=== PATIENT | male | born 1985 | race Caucasian/White ===

== ENCOUNTER 2019-05-07 23:09 | Emergency (ER) | payer SELFPAY ==
--- OUTSIDE RECORDS SUMMARY | 2019-05-07 23:14 | XMS REPORT ---
:1985 [facility] Emiliano Montilla [address] [place] [address] Care Team Providers Name Role Phone Unavailable Unavailable Unavailable Payers Payer Name Policy Type Policy Number Effective Date Expiration Date Problems This patient has no known problems. Allergies, Adverse Reactions, Alerts Allergy Allergy Status Severity Reaction(s) Onset Inactive Treating Comments Name Type Date Date Clinician No Known DA Active U 2016-07 Allergies -13 00:00:0 0 Medications This patient has no known medications. Results Test Description Test Time Test Comments Text Results Atomic Results Result Comments CALCULI URINARY WITH PHOTO 2019-04-07 14:08:00 Test Item Value Reference Range Comments ST COLOR (test code=COLST) [place] () ST SIZE (test code=SIZST) 4x3x3 mm () ST WEIGHT (test code=WGTST) 31.[address] () ST COMPOSITION (test () Percentage (Represents the % code=COMPST) composition) ST CA OXALATE DIHYDRATE (test 15 % () code=CAOXDST) ST CA OXALATE MONOHYDRATE 55 % () (test code=CAOXMST) ST CA PHOSPHATE (test 30 % () code=CAPHST) ST NIDUS (test code=NIDUSST) No Nidus visualized () ST SURFACE CRYSTALS (test Comment: () Calcium oxalate dihydrate code=SURFST) ST COMMENT 2 (test Note: () Please do not submit specimens code=CMTST2) on Q-Tips, in tape, onfilters, or in liquids such as blood, urine or formalin.This may cause unnecessary biohazards, erroneous resultsand/or delay in the processing of the specimen. ST PHOTO (test code=PHOTST) () Photograph will follow under separate cover. ST COMMENT 3 (test () Physician questions regarding code=CMTST3) Calculi [facility] at: [phone]. SURGICAL [id number] 18:04:00 RUN DATE: 04/01/19 tocario *LIVE* PAGE 1 RUN TIME: 1804 Specimen Inquiry RUN USER: INTERFACE PATIENT: MARK SALMERON [facility] U #: [id number] AGE/SX: 34/M ROOM: [facility] RE03/20/19MONICA DR: Denis Mo MD : 85 BED: 1 DIS: STATUS: DIS IN TLOC: ----- ------- SPEC #: [id number] RECD: 03/31/19 STATUS: [place] #: [id number] KATIA: 03/31/[address]: Denis Mo MD ENTERED: 04/01/19 SP TYPE: SURG SPEC OTHR DR: Self Referred Sam Koo MD, Jeromy T MDORDERED: GMLEVEL 4 CODES: [id number] - URETER, NOS COPIES TO: Self Referred Denis Mo MD [address] [place], [place] [id number] Sam Koo MD [address] [facility] [address] [place] [address] Slim Ramirez MD [address] [place], [place] [address] [place] [address] [email or web address] PROCEDURES: GM LEVEL 4 (Incomplete) TISSUES: 1. URETER, NOS - Calculus, left ureter FINAL DIAGNOSIS Calculus, left ureter: For identification (chemical analysis to follow). GROSS AND MICROSCOPIC GROSS DESCRIPTION: Received in the fresh state and labeled "stone" is a urinary tract stone. The stone is designated from the left ureter and measures 0.4 cm in greatest dimensions. The stone is submitted for chemical analysis. CONTINUED ON NEXT PAGE RUN DATE: 04/01/19 [facility] *LIVE* PAGE 2 RUN TIME: 1804 Specimen Inquiry RUN USER: INTERFACE SPEC #: [id number] :[id number] PATIENT: MARK SALMERON #[id number] (Continued)- POST-OP DIAGNOSIS Left ureter stone PRE-OP DIAGNOSIS Left ureter stone Signed SIGNATURE ON FILE Christin Ford MD 04/01/19 1804 END OF REPORT - XR FLUOROSCOPY 0-60 [id number] 15:37:00 FAX: Simon Galvez MD [phone] Tangent: St: ADM Name: MARK SALMERON [facility] : 1985 Age/S: 34/M [address] [place] [address] Unit#: [id number] Loc : [id number] [place] [address] Phys: Simon Ramirez MD Acct: [id number] Dis Date: Status: ADM IN PHONE #: [phone] Exam Date: 03/30/2019 1147 FAX #: [phone] Reason: STONE EXAMS: CPT CODE: [id number] XR FLUOROSCOPY 0-60 MIN 61591 Exam: Fluoroscopy provided for operating physician. Indication: 34-year-old male with stone. Comparison: None. Technique: Fluoroscopy provided for operating physician. Fluoroscopy time: 47 seconds Radiation dose: 21.5 mGycm2 Number of fluoroscopic images: 7 Findings: Fluoroscopy was provided for the operating physician. Please see operative report for details. Impression: Fluoroscopy was provided for the operating physician. Please see operative report for details. SL: [id number] at 1537 Reported and signed by: George Khoury M.D. CC: Simon Ramirez MD Technologist: RT Mario(R) Trnscrd Date/Time/By: 03/30/2019 (1533) : By: Jo AnnAB53 Orig Print D/T : S: 03/30/2019 (2293) PAGE 1 Signed ReportUA RFLX MICR CULT IF [id number] 05:32:00 Test Item Value Reference Range Comments UA COLOR (test code=COLU) DARK YELLOW YEL/STRAW UA APPEARANCE (test code=APPU) CLOUDY CLEAR UA GLUCOSE DIPSTICK (test code=DGLUU) NEGATIVE NEGATIVE UA BILIRUBIN DIPSTICK (test code=BILU) 3+ NEGATIVE UA KETONE DIPSTICK (test code=KETU) NEGATIVE NEGATIVE UA SPECIFIC GRAVITY (test code=SGU) 1.020 1.005-1.030 UA BLOOD DIPSTICK (test code=REANNA) 5+ NEGATIVE UA PH DIPSTICK (test code=DARIO) 6.5 5.0-7.0 UA PROTEIN DIPSTICK (test code=PROU) 4+ NEGATIVE UA UROBILINIOGEN DIPSTICK (test code=URO) 8.0 mg/dL 0.2-1.0 UA NITRITE DIPSTICK (test code=MARQUES) POSITIVE NEGATIVE UA LEUKOCYTE ESTERASE DIPSTICK (test 1+ NEGATIVE code=LEUU) UA WBC (test code=WBCU) 4-9 WBC/HPF 0-3 UA RBC (test code=RBCU) >50 RBC/HPF 0-3 UA WBC NO REFLEX (test code=WBCUCL) 4-9 WBC/HPF 0-3 UA BACTERIA (test code=BACU) TRACE /HPF NONE SEEN UA SQUAMOUS CELLS (test code=SQU) NONE SEEN /HPF NONE SEEN Indication for culture: Flank PainSpecimen Description: CLEAN CATCH- XR ABDOMEN 1V (KUB)2019-03-30 05:27:00 FAX: Ayad River NP Tangent: St: ADM Name: MARK SALMERON [facility] : 1985 Age/S: 34/M [address] [place] [address] Unit#: [id number] Loc: [place] [address] Phys: Ayad River NP Acct: [id number] Dis Date: Status: ADM IN PHONE #: [phone] Exam Date: 03/30/2019 045 FAX #: [phone] Reason: Known kidney stone with stent EXAMS: CPT CODE: [id number] XR ABDOMEN 1V (KUB) 51864 EXAM: CR, XR ABDOMEN AP 1 V: 03/30/2019, 0445 hours Clinical Indication: Known kidney stone with stent. Intractable pain. Urinary tract infection. Comparison: CT scan 03/27/2019. FINDINGS: TheAP supine view of the abdomen shows a non-obstructive bowel gas pattern. There is no abnormal dilatation of bowel loops. There is no pneumatosis or mass effect. Stable left ureteral stent. Stone at the mid and inferior pole of the left kidney are again noted and appear stableas compared to the prior study. Small stone seen in the right kidney on CT scan from 03/27/2019 is not visualized, probably obscured by feces within the right colon. There are no acute osseous abnormalities noted. IMPRESSION: 1. Stable left renal stones. Stable left ureteral stent. SL: CHANDNI at 0569 Reported and signed by: Erik Pierre M.D. CC: Ayad River NP Technologist: LEANNE Mai)Palak Trnscrd Date/Time/By: 03/30/2019 (0558) : By: Jo AnnJS38 Orig Print D/T : S: 03/30/2019 (3646) PAGE 1 Signed ReportUA RFLX MICR CULT IF [id number] 05:22:00 Test Item Value Reference Range Comments UA COLOR (test code=COLU) DARK YELLOW YEL/STRAW UA APPEARANCE (test code=APPU) CLOUDY CLEAR UA GLUCOSE DIPSTICK (test code=DGLUU) NEGATIVE NEGATIVE UA BILIRUBIN DIPSTICK (test code=BILU) 3+ NEGATIVE UA KETONE DIPSTICK (test code=KETU) NEGATIVE NEGATIVE UA SPECIFIC GRAVITY (test code=SGU) 1.020 1.005-1.030 UA BLOOD DIPSTICK (test code=REANNA) 5+ NEGATIVE UA PH DIPSTICK (test code=DARIO) 6.5 5.0-7.0 UA PROTEIN DIPSTICK (test code=PROU) 4+ NEGATIVE UA UROBILINIOGEN DIPSTICK (test code=URO) 8.0 mg/dL 0.2-1.0 UA NITRITE DIPSTICK (test code=MARQUES) POSITIVE NEGATIVE UA LEUKOCYTE ESTERASE DIPSTICK (test code=LEUU) 1+ NEGATIVE UA WBC (test code=WBCU) WBC/HPF 0-3 UA RBC (test code=RBCU) RBC/HPF 0-3 UA WBC NO REFLEX (test code=WBCUCL) WBC/HPF 0-3 Indication for culture: Flank PainSpecimen Description: CLEAN CATCHBASIC METABOLIC [id number] 05:18:00 Test Item Value Reference Range Comments SODIUM (test code=NA) 139 mEq/L 134-147 POTASSIUM (test code=K) 4.2 mEq/L 3.4-5.0 CHLORIDE (test code=CL) 108 mEq/L 100-108 CARBON DIOXIDE (test code=CO2) 24 mEq/L 21-33 ANION GAP (test code=GAP) 11 0-20 GLUCOSE (test code=GLU) 98 mg/dL 70-110 BLOOD UREA NITROGEN (test 23 mg/dL 7-18 code=BUN) GLOMERULAR FILTRATION RATE 96.6 105-110 Units of measure=ml/min/1.73 (test code=GFR) m2 CREATININE (test code=CREAT) 0.9 mg/dL 0.6-1.3 CALCIUM (test code=CA) 9.1 mg/dL 8.0-10.5 BASIC METABOLIC [id number] 05:09:00 Test Item Value Reference Range Comments SODIUM (test code=NA) 139 mEq/L 134-147 POTASSIUM (test code=K) 4.2 mEq/L 3.4-5.0 CHLORIDE (test code=CL) 108 mEq/L 100-108 CARBON DIOXIDE (test code=CO2) 24 mEq/L 21-33 ANION GAP (test code=GAP) 11 0-20 GLUCOSE (test code=GLU) 98 mg/dL 70-110 BLOOD UREA NITROGEN (test code=BUN) 23 mg/dL 7-18 GLOMERULAR FILTRATION RATE (test code=GFR) 105-110 CREATININE (test code=CREAT) mg/dL 0.6-1.3 CALCIUM (test code=CA) 9.1 mg/dL 8.0-10.5 CBC W/AUTO [id number] 04:47:00 Test Item Value Reference Range Comments WHITE BLOOD CELL (test code=WBC) 9.24 x10 3/uL 4.5-11.0 RED BLOOD CELL (test code=RBC) 4.84 x10 6/uL 4.00-5.60 HEMOGLOBIN (test code=HGB) 16.1 g/dL 12.5-16.9 HEMATOCRIT (test code=HCT) 46.8 % 37.5-50.7 MEAN CELL VOLUME (test code=MCV) 96.7 fL 81.0-99.0 MEAN CELL HGB (test code=MCH) 33.3 pg 27.0-33.0 MEAN CELL HGB CONCETRATION (test code=MCHC) 34.4 g/dL 33.0-37.0 RED CELL DISTRIBUTION WIDTH CV (test code=RDW) 11.9 % 11.5-14.5 RED CELL DISTRIBUTION WIDTH SD (test 42.9 fL 37.0-54.0 code=RDW-SD) PLATELET COUNT (test code=PLT) 334 x10 3/uL 150-400 MEAN PLATELET VOLUME (test code=MPV) 9.6 fL 7.0-9.0 NEUTROPHIL % (test code=NT%) 51.4 % 56.0-77.0 IMMATURE GRANULOCYTE % (test code=IG%) 0.2 % 0.0-2.0 LYMPHOCYTE % (test code=LY%) 35.7 % 14.0-32.0 MONOCYTE % (test code=MO%) 7.4 % 4.8-9.0 EOSINOPHIL % (test code=EO%) 4.5 % 0.3-3.7 BASOPHIL % (test code=BA%) 0.8 % 0.0-2.0 NUCLEATED RBC % (test code=NRBC%) 0.0 % 0-0 NEUTROPHIL # (test code=NT#) 4.75 x10 3/uL 2.0-7.6 IMMATURE GRANULOCYTE # (test code=IG#) 0.02 x10 3/uL 0.00-0.03 LYMPHOCYTE # (test code=LY#) 3.30 x10 3/uL 1.0-3.8 MONOCYTE # (test code=MO#) 0.68 x10 3/uL 0.1-0.8 EOSINOPHIL # (test code=EO#) 0.42 x10 3/uL 0.0-0.2 BASOPHIL # (test code=BA#) 0.07 x10 3/uL 0.0-0.2 NUCLEATED RBC # (test code=NRBC#) 0.00 x10 3/uL 0.0-0.1 MANUAL DIFF REQUIRED (test code=MDIFF) NO - CT ABD PELVIS W/O [id number] 21:09:00 Name: MARK SALMERON [facility] : 1985 Age/S: 34 / M [address] [place] [address] Unit #: [id number] Loc: [place] [id number] Phys: Angelic Friend FURNACE BRAZER Acct: [id number] Dis Date: Status: REG ER PHONE #: [phone] Exam Date: 2044 FAX #: [phone] Reason: flank pain, kidney stone EXAMS: CPTCODE: [id number] CT ABD PELVIS W/O CONT 55591 Clinical Indication: flank pain, kidney stone Comparison: 03/20/2019 TECHNIQUE: Helical imaging was performed without injection of IV contrast, from the lung base through the symphysis with multiplanar reformations obtained. IV CONTRAST: No IV contrast was administered.GI CONTRAST: No oral contrast was administered. DLP: 602 mGy-cm FINDINGS: Evaluations of the internal organs are limited due to the lack of IV contrast. ABDOMEN AND PELVIS WITHOUT CONTRAST: LUNG BASE: The lung bases are clear. LIVER: The liver has normal contour and is unremarkable. GALLBLADDER: The gallbladder is unremarkable, there is no evidence of cholelithiasis or cholecystitis. PANCREAS: The pancreas is unremarkable. SPLEEN: The spleen is unremarkable. ADRENALS: The right adrenal gland is unremarkable. The left adrenal gland is unremarkable. KIDNEYS: Bilateral nonobstructive nephrolithiasis is present. A left-sided ureteral stent is seen connecting the left renal pelvis to the urinary bladder. A 3 mm left mid ureteral calculus is again visualized adjacent to the peripheral left ureteral stent at the S1- S2 level possibly advanced by a few millimeters since the last exam. There is no evidenceof hydronephrosis. BOWEL: The visualized portion of the esophagus is unremarkable. The stomach is unremarkable. The small bowel is normal in caliber and there is no evidenceof masses or obstruction. The colon is normal in caliber without any masses. Diverticulosis without evidence of diverticulitis is seen in the distal colon. APPENDIX: The appendix is unremarkable. PAGE 1 Signed Report (CONTINUED) Name: MARK SALMERON [facility] : 1985 Age/S: 34 / M [address] [place] [address] Unit #: [id number] Loc: [place], [place] Phys: Angelic Friend NP Acct: [id number] Dis Date: Status: REG ER PHONE #: [phone] Exam Date: 03/27/20192044 FAX #: [phone] Reason: flank pain, kidney stone EXAMS: CPTCODE: [id number] CT ABD PELVIS W/O CONT 30745 <Continued> PELVIS: There are no pelvic mass. The urinary bladder is normal. The prostateand seminal vesicles are unremarkable. PERITONEUM: There is no evidence for free intraperitoneal fluid or air. SOFT TISSUES: The soft tissues are unremarkable. There is no evidence of masses or hernias. LYMPH NODES: There is no evidence of mesenteric, retroperitoneal, or inguinal lymphadenopathy. VASCULATURE: The abdominal aorta is normal in caliber. MUSCULOSKELETAL: No aggressive bone lesions are seen. IMPRESSION: Bilateral nonobstructive nephrolithiasis. No evidence of obstructive ureterolithiasis. Left-sided ureteral stent with a 3 mm mid ureteral stone at the S1-S2 level, possibly advanced by a few millimeters since the last exam. Diverticulosis without evidence of diverticulitis of the distal colon. SL: TDU-H at 2108 Reported and signed by: Ishmael Raymundo M.D. CC: Angelic Friend NP Technologist:Camryn Haines RT(R)(CT); Kirsten CTDI: DLP: Trnscb Date/Time: 03/27/2019 (2108) Jo AnnLNV Orig Print D/T: S : 03/27/2019 (2111) PAGE 2 Signed ReportUA RFLX MICR CULT IF [id number] 20:57:00 Test Item Value Reference Range Comments UA COLOR (test code=COLU) MILLICENT YEL/STRAW UA APPEARANCE (test code=APPU) SL CLOUDY CLEAR UA GLUCOSE DIPSTICK (test code=DGLUU) NEGATIVE NEGATIVE UA BILIRUBIN DIPSTICK (test code=BILU) NEGATIVE NEGATIVE UA KETONE DIPSTICK (test code=KETU) NEGATIVE NEGATIVE UA SPECIFIC GRAVITY (test code=SGU) 1.019 1.005-1.030 UA BLOOD DIPSTICK (test code=REANNA) 3+ NEGATIVE UA PH DIPSTICK (test code=DARIO) 6.0 5.0-7.0 UA PROTEIN DIPSTICK (test code=PROU) 2+ NEGATIVE UA UROBILINIOGEN DIPSTICK (test code=URO) 4.0 mg/dL 0.2-1.0 UA NITRITE DIPSTICK (test code=MARQUES) POSITIVE NEGATIVE UA LEUKOCYTE ESTERASE DIPSTICK (test 1+ NEGATIVE code=LEUU) UA WBC (test code=WBCU) 0-3 WBC/HPF 0-3 UA RBC (test code=RBCU) >50 RBC/HPF 0-3 UA WBC NO REFLEX (test code=WBCUCL) 0-3 WBC/HPF 0-3 UA BACTERIA (test code=BACU) NONE SEEN /HPF NONE SEEN UA SQUAMOUS CELLS (test code=SQU) NONE SEEN /HPF NONE SEEN UA MUCUS (test code=MUCU) TRACE /LPF NONE SEEN Indication for culture: Suprapubic PainSpecimen Description: CLEAN CATCHBASIC METABOLIC [id number] 20:51:00 Test Item Value Reference Range Comments SODIUM (test code=NA) 141 mEq/L 134-147 POTASSIUM (test code=K) 4.2 mEq/L 3.4-5.0 CHLORIDE (test code=CL) 108 mEq/L 100-108 CARBON DIOXIDE (test code=CO2) 26 mEq/L 21-33 ANION GAP (test code=GAP) 11 0-20 GLUCOSE (test code=GLU) 79 mg/dL 70-110 BLOOD UREA NITROGEN (test 20 mg/dL 7-18 code=BUN) GLOMERULAR FILTRATION RATE 96.6 105-110 Units of measure=ml/min/1.73 (test code=GFR) m2 CREATININE (test code=CREAT) 0.9 mg/dL 0.6-1.3 CALCIUM (test code=CA) 9.0 mg/dL 8.0-10.5 HEPATIC FUNCTION [id number] 20:51:00 Test Item Value Reference Range Comments TOTAL PROTEIN (test code=PROT) 7.6 g/dL 6.4-8.2 ALBUMIN (test code=ALB) 4.20 g/dL 3.4-5.0 BILIRUBIN TOTAL (test code=BILT) 0.2 MG/DL <1.5 BILIRUBIN DIRECT (test code=BILD) < 0.10 MG/DL 0.0-0.30 BILIRUBIN INDIRECT (test code=BILIND) 0.10 MG/DL SGOT/AST (test code=AST) 19 IUnit/L 15-37 SGPT/ALT (test code=ALT) 37 IUnit/L 15-65 ALKALINE PHOSPHATASE TOTAL (test code=ALKP) 48 IUnit/L 20-125 BASIC METABOLIC [id number] 20:44:00 Test Item Value Reference Range Comments SODIUM (test code=NA) 141 mEq/L 134-147 POTASSIUM (test code=K) 4.2 mEq/L 3.4-5.0 CHLORIDE (test code=CL) 108 mEq/L 100-108 CARBON DIOXIDE (test code=CO2) 26 mEq/L 21-33 ANION GAP (test code=GAP) 11 0-20 GLUCOSE (test code=GLU) 79 mg/dL 70-110 BLOOD UREA NITROGEN (test code=BUN) 20 mg/dL 7-18 GLOMERULAR FILTRATION RATE (test code=GFR) 105-110 CREATININE (test code=CREAT) mg/dL 0.6-1.3 CALCIUM (test code=CA) 9.0 mg/dL 8.0-10.5 HEPATIC FUNCTION [id number] 20:44:00 Test Item Value Reference Range Comments TOTAL PROTEIN (test code=PROT) g/dL 6.4-8.2 ALBUMIN (test code=ALB) g/dL 3.4-5.0 BILIRUBIN TOTAL (test code=BILT) MG/DL <1.5 BILIRUBIN DIRECT (test code=BILD) MG/DL 0.0-0.30 SGOT/AST (test code=AST) IUnit/L 15-37 SGPT/ALT (test code=ALT) IUnit/L 15-65 ALKALINE PHOSPHATASE TOTAL (test code=ALKP) IUnit/L 20-125 CBC W/AUTO [id number] 20:32:00 Test Item Value Reference Range Comments WHITE BLOOD CELL (test code=WBC) 7.42 x10 3/uL 4.5-11.0 RED BLOOD CELL (test code=RBC) 4.41 x10 6/uL 4.00-5.60 HEMOGLOBIN (test code=HGB) 14.6 g/dL 12.5-16.9 HEMATOCRIT (test code=HCT) 43.4 % 37.5-50.7 MEAN CELL VOLUME (test code=MCV) 98.4 fL 81.0-99.0 MEAN CELL HGB (test code=MCH) 33.1 pg 27.0-33.0 MEAN CELL HGB CONCETRATION (test code=MCHC) 33.6 g/dL 33.0-37.0 RED CELL DISTRIBUTION WIDTH CV (test code=RDW) 12.2 % 11.5-14.5 RED CELL DISTRIBUTION WIDTH SD (test 44.4 fL 37.0-54.0 code=RDW-SD) PLATELET COUNT (test code=PLT) 311 x10 3/uL 150-400 MEAN PLATELET VOLUME (test code=MPV) 9.2 fL 7.0-9.0 NEUTROPHIL % (test code=NT%) 41.9 % 56.0-77.0 IMMATURE GRANULOCYTE % (test code=IG%) 0.3 % 0.0-2.0 LYMPHOCYTE % (test code=LY%) 43.4 % 14.0-32.0 MONOCYTE % (test code=MO%) 8.9 % 4.8-9.0 EOSINOPHIL % (test code=EO%) 4.6 % 0.3-3.7 BASOPHIL % (test code=BA%) 0.9 % 0.0-2.0 NUCLEATED RBC % (test code=NRBC%) 0.0 % 0-0 NEUTROPHIL # (test code=NT#) 3.11 x10 3/uL 2.0-7.6 IMMATURE GRANULOCYTE # (test code=IG#) 0.02 x10 3/uL 0.00-0.03 LYMPHOCYTE # (test code=LY#) 3.22 x10 3/uL 1.0-3.8 MONOCYTE # (test code=MO#) 0.66 x10 3/uL 0.1-0.8 EOSINOPHIL # (test code=EO#) 0.34 x10 3/uL 0.0-0.2 BASOPHIL # (test code=BA#) 0.07 x10 3/uL 0.0-0.2 NUCLEATED RBC # (test code=NRBC#) 0.00 x10 3/uL 0.0-0.1 MANUAL DIFF REQUIRED (test code=MDIFF) NO CBC W/AUTO [id number] 13:04:00 Test Item Value Reference Range Comments WHITE BLOOD CELL (test code=WBC) 8.70 x10 3/uL 4.5-11.0 RED BLOOD CELL (test code=RBC) 4.69 x10 6/uL 4.00-5.60 HEMOGLOBIN (test code=HGB) 15.6 g/dL 12.5-16.9 HEMATOCRIT (test code=HCT) 45.3 % 37.5-50.7 MEAN CELL VOLUME (test code=MCV) 96.6 fL 81.0-99.0 MEAN CELL HGB (test code=MCH) 33.3 pg 27.0-33.0 MEAN CELL HGB CONCETRATION (test code=MCHC) 34.4 g/dL 33.0-37.0 RED CELL DISTRIBUTION WIDTH CV (test code=RDW) 12.5 % 11.5-14.5 RED CELL DISTRIBUTION WIDTH SD (test 43.8 fL 37.0-54.0 code=RDW-SD) PLATELET COUNT (test code=PLT) 362 x10 3/uL 150-400 MEAN PLATELET VOLUME (test code=MPV) 9.1 fL 7.0-9.0 NEUTROPHIL % (test code=NT%) 71.9 % 56.0-77.0 IMMATURE GRANULOCYTE % (test code=IG%) 0.1 % 0.0-2.0 LYMPHOCYTE % (test code=LY%) 19.5 % 14.0-32.0 MONOCYTE % (test code=MO%) 5.6 % 4.8-9.0 EOSINOPHIL % (test code=EO%) 2.3 % 0.3-3.7 BASOPHIL % (test code=BA%) 0.6 % 0.0-2.0 NUCLEATED RBC % (test code=NRBC%) 0.0 % 0-0 NEUTROPHIL # (test code=NT#) 6.25 x10 3/uL 2.0-7.6 IMMATURE GRANULOCYTE # (test code=IG#) 0.01 x10 3/uL 0.00-0.03 LYMPHOCYTE # (test code=LY#) 1.70 x10 3/uL 1.0-3.8 MONOCYTE # (test code=MO#) 0.49 x10 3/uL 0.1-0.8 EOSINOPHIL # (test code=EO#) 0.20 x10 3/uL 0.0-0.2 BASOPHIL # (test code=BA#) 0.05 x10 3/uL 0.0-0.2 NUCLEATED RBC # (test code=NRBC#) 0.00 x10 3/uL 0.0-0.1 MANUAL DIFF REQUIRED (test code=MDIFF) NO SED RATE [id number] 13:04:00 Test Item Value Reference Range Comments SED RATE WESTERGREN (test code=SEDW) 1 mm/hr 0-15 COMPREHENSIVE METABOLIC [id number] 12:43:00 Test Item Value Reference Range Comments SODIUM (test code=NA) 137 mEq/L 134-147 POTASSIUM (test code=K) 4.3 mEq/L 3.4-5.0 CHLORIDE (test code=CL) 103 mEq/L 100-108 CARBON DIOXIDE (test code=CO2) 30 mEq/L 21-33 ANION GAP (test code=GAP) 8 0-20 GLUCOSE (test code=GLU) 95 mg/dL 70-110 BLOOD UREA NITROGEN (test 15 mg/dL 7-18 code=BUN) GLOMERULAR FILTRATION RATE 85.5 105-110 Units of (test code=GFR) measure=ml/min/1.73 m2 CREATININE (test code=CREAT) 1.0 mg/dL 0.6-1.3 TOTAL PROTEIN (test code=PROT) 8.1 g/dL 6.4-8.2 ALBUMIN (test code=ALB) 4.20 g/dL 3.4-5.0 CALCIUM (test code=CA) 9.7 mg/dL 8.0-10.5 BILIRUBIN TOTAL (test 0.4 MG/DL <1.5 code=BILT) SGOT/AST (test code=AST) 19 IUnit/L 15-37 SGPT/ALT (test code=ALT) 38 IUnit/L 15-65 ALKALINE PHOSPHATASE TOTAL 49 IUnit/L 20-125 (test code=ALKP) [id number] 12:43:00 Test Item Value Reference Range Comments LIPASE (test code=LIP) 71 IUnit/L 73-393 CBC W/AUTO [id number] 12:19:00 Test Item Value Reference Range Comments WHITE BLOOD CELL (test code=WBC) 8.70 x10 3/uL 4.5-11.0 RED BLOOD CELL (test code=RBC) 4.69 x10 6/uL 4.00-5.60 HEMOGLOBIN (test code=HGB) 15.6 g/dL 12.5-16.9 HEMATOCRIT (test code=HCT) 45.3 % 37.5-50.7 MEAN CELL VOLUME (test code=MCV) 96.6 fL 81.0-99.0 MEAN CELL HGB (test code=MCH) 33.3 pg 27.0-33.0 MEAN CELL HGB CONCETRATION (test code=MCHC) 34.4 g/dL 33.0-37.0 RED CELL DISTRIBUTION WIDTH CV (test code=RDW) 12.5 % 11.5-14.5 RED CELL DISTRIBUTION WIDTH SD (test 43.8 fL 37.0-54.0 code=RDW-SD) PLATELET COUNT (test code=PLT) 362 x10 3/uL 150-400 MEAN PLATELET VOLUME (test code=MPV) 9.1 fL 7.0-9.0 NEUTROPHIL % (test code=NT%) 71.9 % 56.0-77.0 IMMATURE GRANULOCYTE % (test code=IG%) 0.1 % 0.0-2.0 LYMPHOCYTE % (test code=LY%) 19.5 % 14.0-32.0 MONOCYTE % (test code=MO%) 5.6 % 4.8-9.0 EOSINOPHIL % (test code=EO%) 2.3 % 0.3-3.7 BASOPHIL % (test code=BA%) 0.6 % 0.0-2.0 NUCLEATED RBC % (test code=NRBC%) 0.0 % 0-0 NEUTROPHIL # (test code=NT#) 6.25 x10 3/uL 2.0-7.6 IMMATURE GRANULOCYTE # (test code=IG#) 0.01 x10 3/uL 0.00-0.03 LYMPHOCYTE # (test code=LY#) 1.70 x10 3/uL 1.0-3.8 MONOCYTE # (test code=MO#) 0.49 x10 3/uL 0.1-0.8 EOSINOPHIL # (test code=EO#) 0.20 x10 3/uL 0.0-0.2 BASOPHIL # (test code=BA#) 0.05 x10 3/uL 0.0-0.2 NUCLEATED RBC # (test code=NRBC#) 0.00 x10 3/uL 0.0-0.1 MANUAL DIFF REQUIRED (test code=MDIFF) NO SED RATE [id number] 12:19:00 Test Item Value Reference Range Comments SED RATE WESTERGREN (test code=SEDW) mm/hr 0-15 BASIC METABOLIC [id number] 04:59:00 Test Item Value Reference Range Comments SODIUM (test code=NA) 139 mEq/L 134-147 POTASSIUM (test code=K) 3.9 mEq/L 3.4-5.0 CHLORIDE (test code=CL) 107 mEq/L 100-108 CARBON DIOXIDE (test code=CO2) 28 mEq/L 21-33 ANION GAP (test code=GAP) 8 0-20 GLUCOSE (test code=GLU) 90 mg/dL 70-110 BLOOD UREA NITROGEN (test 12 mg/dL 7-18 code=BUN) GLOMERULAR FILTRATION RATE 129.1 105-110 Units of measure=ml/min/1.73 (test code=GFR) m2 CREATININE (test code=CREAT) 0.7 mg/dL 0.6-1.3 CALCIUM (test code=CA) 9.0 mg/dL 8.0-10.5 CBC W/AUTO [id number] 04:27:00 Test Item Value Reference Range Comments WHITE BLOOD CELL (test code=WBC) 8.24 x10 3/uL 4.5-11.0 RED BLOOD CELL (test code=RBC) 4.43 x10 6/uL 4.00-5.60 HEMOGLOBIN (test code=HGB) 14.5 g/dL 12.5-16.9 HEMATOCRIT (test code=HCT) 44.0 % 37.5-50.7 MEAN CELL VOLUME (test code=MCV) 99.3 fL 81.0-99.0 MEAN CELL HGB (test code=MCH) 32.7 pg 27.0-33.0 MEAN CELL HGB CONCETRATION (test code=MCHC) 33.0 g/dL 33.0-37.0 RED CELL DISTRIBUTION WIDTH CV (test code=RDW) 12.3 % 11.5-14.5 RED CELL DISTRIBUTION WIDTH SD (test 45.3 fL 37.0-54.0 code=RDW-SD) PLATELET COUNT (test code=PLT) 318 x10 3/uL 150-400 MEAN PLATELET VOLUME (test code=MPV) 9.1 fL 7.0-9.0 NEUTROPHIL % (test code=NT%) 55.3 % 56.0-77.0 IMMATURE GRANULOCYTE % (test code=IG%) 0.2 % 0.0-2.0 LYMPHOCYTE % (test code=LY%) 33.1 % 14.0-32.0 MONOCYTE % (test code=MO%) 7.2 % 4.8-9.0 EOSINOPHIL % (test code=EO%) 3.6 % 0.3-3.7 BASOPHIL % (test code=BA%) 0.6 % 0.0-2.0 NUCLEATED RBC % (test code=NRBC%) 0.0 % 0-0 NEUTROPHIL # (test code=NT#) 4.55 x10 3/uL 2.0-7.6 IMMATURE GRANULOCYTE # (test code=IG#) 0.02 x10 3/uL 0.00-0.03 LYMPHOCYTE # (test code=LY#) 2.73 x10 3/uL 1.0-3.8 MONOCYTE # (test code=MO#) 0.59 x10 3/uL 0.1-0.8 EOSINOPHIL # (test code=EO#) 0.30 x10 3/uL 0.0-0.2 BASOPHIL # (test code=BA#) 0.05 x10 3/uL 0.0-0.2 NUCLEATED RBC # (test code=NRBC#) 0.00 x10 3/uL 0.0-0.1 MANUAL DIFF REQUIRED (test code=MDIFF) NO PROCALCITONIN (PCT)2019-03-21 10:08:00 Test Item Value Reference Range Comments PROCALCITONIN (PCT) (test < 0.05 ng/mL 0.00-0.05 PROCALCITONIN (PCT) NORMAL code=PROCAL) RANGE (ADULT): <0.05 NG/ML. * a concentration <0.5 ng/mL represents a low risk of severe sepsis and/or septic shock.* a concentration >2 ng/mL represents a high risk of severe sepsis and/or septic shock.Nevertheless, concentrations <0.5 ng/mL do not exclude aninfection, on account of localized infections (withoutsystemic signs) which can be associated with such lowconcentrations, or a systemic infection in its initialstages (< 6 hours). Furthermore, increased procalcitonincan occur without infection. PCT concentrations between 0.5and 2.0 ng/mL should be interpreted taking into account thepatient's history. It is recommended to retest PCT within6-24 hours if any concentrations <2 ng/mL are obtained. BASIC METABOLIC [id number] 08:36:00 Test Item Value Reference Range Comments SODIUM (test code=NA) 139 mEq/L 134-147 POTASSIUM (test code=K) 3.8 mEq/L 3.4-5.0 CHLORIDE (test code=CL) 108 mEq/L 100-108 CARBON DIOXIDE (test code=CO2) 27 mEq/L 21-33 ANION GAP (test code=GAP) 8 0-20 GLUCOSE (test code=GLU) 80 mg/dL 70-110 BLOOD UREA NITROGEN (test 12 mg/dL 7-18 code=BUN) GLOMERULAR FILTRATION RATE 129.1 105-110 Units of measure=ml/min/1.73 (test code=GFR) m2 CREATININE (test code=CREAT) 0.7 mg/dL 0.6-1.3 CALCIUM (test code=CA) 8.7 mg/dL 8.0-10.5 CBC W/AUTO [id number] 06:36:00 Test Item Value Reference Range Comments WHITE BLOOD CELL (test code=WBC) 7.01 x10 3/uL 4.5-11.0 RED BLOOD CELL (test code=RBC) 4.05 x10 6/uL 4.00-5.60 HEMOGLOBIN (test code=HGB) 13.4 g/dL 12.5-16.9 HEMATOCRIT (test code=HCT) 40.2 % 37.5-50.7 MEAN CELL VOLUME (test code=MCV) 99.3 fL 81.0-99.0 MEAN CELL HGB (test code=MCH) 33.1 pg 27.0-33.0 MEAN CELL HGB CONCETRATION (test code=MCHC) 33.3 g/dL 33.0-37.0 RED CELL DISTRIBUTION WIDTH CV (test code=RDW) 12.7 % 11.5-14.5 RED CELL DISTRIBUTION WIDTH SD (test 46.3 fL 37.0-54.0 code=RDW-SD) PLATELET COUNT (test code=PLT) 325 x10 3/uL 150-400 MEAN PLATELET VOLUME (test code=MPV) 9.4 fL 7.0-9.0 NEUTROPHIL % (test code=NT%) 56.0 % 56.0-77.0 IMMATURE GRANULOCYTE % (test code=IG%) 0.3 % 0.0-2.0 LYMPHOCYTE % (test code=LY%) 31.7 % 14.0-32.0 MONOCYTE % (test code=MO%) 8.3 % 4.8-9.0 EOSINOPHIL % (test code=EO%) 3.1 % 0.3-3.7 BASOPHIL % (test code=BA%) 0.6 % 0.0-2.0 NUCLEATED RBC % (test code=NRBC%) 0.0 % 0-0 NEUTROPHIL # (test code=NT#) 3.93 x10 3/uL 2.0-7.6 IMMATURE GRANULOCYTE # (test code=IG#) 0.02 x10 3/uL 0.00-0.03 LYMPHOCYTE # (test code=LY#) 2.22 x10 3/uL 1.0-3.8 MONOCYTE # (test code=MO#) 0.58 x10 3/uL 0.1-0.8 EOSINOPHIL # (test code=EO#) 0.22 x10 3/uL 0.0-0.2 BASOPHIL # (test code=BA#) 0.04 x10 3/uL 0.0-0.2 NUCLEATED RBC # (test code=NRBC#) 0.00 x10 3/uL 0.0-0.1 MANUAL DIFF REQUIRED (test code=MDIFF) NO LACTIC [id number] 13:02:00 Test Item Value Reference Range Comments LACTIC ACID (test code=LACT) 0.7 mmol/L 0.4-1.9 - CT ABD PELVIS W/O [id number] 10:44:00 Name: MARK SALMERON [facility] : 1985 Age/S: 34 / M [address] [place] [address] Unit #: [id number] Loc: [place] [id number] Phys: Armando Mares MD Acct: [id number] Dis Date: Status: REG ER PHONE #: [phone] Exam Date: 05/2019 09 FAX #: [phone] Reason: severe left flank pain, s/p stent EXAMS: CPTCODE: [id number] CT ABD PELVIS W/O CONT 93979 CT ABDOMEN AND PELVIS WITHOUT CONTRAST. INDICATION: Severe left flank and groin pain for one day. Status post stent placement 2 weeks ago. Kidney stones. Left groin pain. COMPARISON: 03/17/2019 CT abdomen and pelvis. TECHNIQUE: Helical imaging was performed from thediaphragm through the pubic symphysis with multiplanar reformations obtained. DOSE: CT imaging performed at this location utilizes radiation dose optimization technique which includes one or more of the followin) Automated exposure control; 2) Adjustment of the mA and/or kV according to patient's size; 3) Use of iterative reconstruction techniques. DLP: 595 mGy-cm IV contrast: None. GI contrast: None. FINDINGS: LOWER CHEST: Visualized portions of the lung bases are clear. PERITONEUM: No free intraperitoneal air or fluid. RETROPERITONEUM : Abdominal aorta is normal in caliber. No adenopathy appreciated. SOLID ORGANS: The liver, gallbladder, spleen, pancreas, and bilateral adrenal glands all appear normal. KIDNEYS/URETERS: Punctate nonobstructing 1 to 2 mm right renal calculus in the lower pole is once again seen. Multiple nonobstructing left renal calculi are seen measuring up to 8 to 9 mm greatest dimension whichis seen in the lower pole. No hydronephrosis bilaterally. A 3 mm left mid ureteral calculus ispresent at the S1-S2 level appearing relatively stable or possibly advanced by a few millimeters. PELVIS: The bladder is filled with fluid. Prostate gland measures approximately 4 cm transverse dimension. BOWELS/APPENDIX: There are no abnormally dilated small or large bowel loops. Appendix is normal. Few distal colonic diverticula are present. PAGE 1 Signed Report (CONTINUED) Name: MARK SALMERON [facility] : 1985 Age/S: 34 / M [address] [place] [address] Bl Unit #: [id number] Loc: [place] [address] Phys: Armando Mares MD Acct: [id number] Dis Date: Status: REG ER PHONE #: [phone] Exam Date: 03/20/2019 0947 FAX #: [phone] Reason: severe left flank pain, s/pstent EXAMS: CPT CODE: [id number] CT ABD PELVIS W/O CONT 83340 <Continued&gt ; MUSCULOSKELETAL: No suspicious osseous abnormality identified. IMPRESSION: 1. Nonobstructing nephrolithiasis, left greater than right. 2. Left ureteral stent once again seen with mid ureteral calculus appearing stable or distally migrated by a few millimeters since prior study. 3. Mild colonic diverticulosis. SL: [id number] at 1044 Reported and signed by: Shekhar Stevenson M.D. CC: Armando Mares MD Technologist:Kirsten Lam, RT(R)(CT) CTDI: DLP: Trnscb Date/Time: 03/20/2019 (1043) [id number] OrigPrint D /T: S: 03/20/2019 (1047) PAGE 2 Signed ReportCOMPREHENSIVE METABOLIC [id number] 10:17:00 Test Item Value Reference Range Comments SODIUM (test code=NA) 138 mEq/L 134-147 POTASSIUM (test code=K) 4.1 mEq/L 3.4-5.0 CHLORIDE (test code=CL) 104 mEq/L 100-108 CARBON DIOXIDE (test code=CO2) 28 mEq/L 21-33 ANION GAP (test code=GAP) 10 0-20 GLUCOSE (test code=GLU) 93 mg/dL 70-110 BLOOD UREA NITROGEN (test 12 mg/dL 7-18 code=BUN) GLOMERULAR FILTRATION RATE 110.7 105-110 Units of (test code=GFR) measure=ml/min/1.73 m2 CREATININE (test code=CREAT) 0.8 mg/dL 0.6-1.3 TOTAL PROTEIN (test code=PROT) 7.9 g/dL 6.4-8.2 ALBUMIN (test code=ALB) 4.30 g/dL 3.4-5.0 CALCIUM (test code=CA) 9.2 mg/dL 8.0-10.5 BILIRUBIN TOTAL (test 0.5 MG/DL <1.5 code=BILT) SGOT/AST (test code=AST) 14 IUnit/L 15-37 SGPT/ALT (test code=ALT) 28 IUnit/L 15-65 ALKALINE PHOSPHATASE TOTAL 47 IUnit/L 20-125 (test code=ALKP) URINALYSIS [id number] 10:10:00 Test Item Value Reference Range Comments UA COLOR (test code=COLU) STRAW YEL/STRAW UA APPEARANCE (test code=APPU) SL CLOUDY CLEAR UA GLUCOSE DIPSTICK (test code=DGLUU) NEGATIVE NEGATIVE UA BILIRUBIN DIPSTICK (test code=BILU) NEGATIVE NEGATIVE UA KETONE DIPSTICK (test code=KETU) NEGATIVE NEGATIVE UA SPECIFIC GRAVITY (test code=SGU) 1.012 1.005-1.030 UA BLOOD DIPSTICK (test code=REANNA) 3+ NEGATIVE UA PH DIPSTICK (test code=DARIO) 7.0 5.0-7.0 UA PROTEIN DIPSTICK (test code=PROU) 2+ NEGATIVE UA UROBILINIOGEN DIPSTICK (test code=URO) 0.2 mg/dL 0.2-1.0 UA NITRITE DIPSTICK (test code=MARQUES) NEGATIVE NEGATIVE UA LEUKOCYTE ESTERASE DIPSTICK (test 3+ NEGATIVE code=LEUU) UA RBC (test code=RBCU) >50 RBC/HPF 0-3 UA WBC NO REFLEX (test code=WBCUCL) 21-50 WBC/HPF 0-3 UA BACTERIA (test code=BACU) NONE SEEN /HPF NONE SEEN UA SQUAMOUS CELLS (test code=SQU) 0-5 /HPF NONE SEEN UA MUCUS (test code=MUCU) TRACE /LPF NONE SEEN COMPREHENSIVE METABOLIC [id number] 10:09:00 Test Item Value Reference Range Comments SODIUM (test code=NA) 138 mEq/L 134-147 POTASSIUM (test code=K) 4.1 mEq/L 3.4-5.0 CHLORIDE (test code=CL) 104 mEq/L 100-108 CARBON DIOXIDE (test code=CO2) 28 mEq/L 21-33 ANION GAP (test code=GAP) 10 0-20 GLUCOSE (test code=GLU) 93 mg/dL 70-110 BLOOD UREA NITROGEN (test code=BUN) 12 mg/dL 7-18 GLOMERULAR FILTRATION RATE (test code=GFR) 105-110 CREATININE (test code=CREAT) mg/dL 0.6-1.3 TOTAL PROTEIN (test code=PROT) g/dL 6.4-8.2 ALBUMIN (test code=ALB) g/dL 3.4-5.0 CALCIUM (test code=CA) 9.2 mg/dL 8.0-10.5 BILIRUBIN TOTAL (test code=BILT) MG/DL <1.5 SGOT/AST (test code=AST) IUnit/L 15-37 SGPT/ALT (test code=ALT) IUnit/L 15-65 ALKALINE PHOSPHATASE TOTAL (test code=ALKP) IUnit/L 20-125 CBC W/AUTO [id number] 10:00:00 Test Item Value Reference Range Comments WHITE BLOOD CELL (test code=WBC) 6.67 x10 3/uL 4.5-11.0 RED BLOOD CELL (test code=RBC) 4.60 x10 6/uL 4.00-5.60 HEMOGLOBIN (test code=HGB) 15.3 g/dL 12.5-16.9 HEMATOCRIT (test code=HCT) 44.8 % 37.5-50.7 MEAN CELL VOLUME (test code=MCV) 97.4 fL 81.0-99.0 MEAN CELL HGB (test code=MCH) 33.3 pg 27.0-33.0 MEAN CELL HGB CONCETRATION (test code=MCHC) 34.2 g/dL 33.0-37.0 RED CELL DISTRIBUTION WIDTH CV (test code=RDW) 12.6 % 11.5-14.5 RED CELL DISTRIBUTION WIDTH SD (test 45.2 fL 37.0-54.0 code=RDW-SD) PLATELET COUNT (test code=PLT) 353 x10 3/uL 150-400 MEAN PLATELET VOLUME (test code=MPV) 9.3 fL 7.0-9.0 NEUTROPHIL % (test code=NT%) 50.9 % 56.0-77.0 IMMATURE GRANULOCYTE % (test code=IG%) 0.3 % 0.0-2.0 LYMPHOCYTE % (test code=LY%) 36.7 % 14.0-32.0 MONOCYTE % (test code=MO%) 7.6 % 4.8-9.0 EOSINOPHIL % (test code=EO%) 3.6 % 0.3-3.7 BASOPHIL % (test code=BA%) 0.9 % 0.0-2.0 NUCLEATED RBC % (test code=NRBC%) 0.0 % 0-0 NEUTROPHIL # (test code=NT#) 3.39 x10 3/uL 2.0-7.6 IMMATURE GRANULOCYTE # (test code=IG#) 0.02 x10 3/uL 0.00-0.03 LYMPHOCYTE # (test code=LY#) 2.45 x10 3/uL 1.0-3.8 MONOCYTE # (test code=MO#) 0.51 x10 3/uL 0.1-0.8 EOSINOPHIL # (test code=EO#) 0.24 x10 3/uL 0.0-0.2 BASOPHIL # (test code=BA#) 0.06 x10 3/uL 0.0-0.2 NUCLEATED RBC # (test code=NRBC#) 0.00 x10 3/uL 0.0-0.1 MANUAL DIFF REQUIRED (test code=MDIFF) NO - CT ABD PELVIS W/O [id number] 16:42:00 Name: MARK SALMERNO [facility] : 1985 Age/S: 34 / M [address] [place] [address] Unit #: [id number] Loc: [place] [id number] Phys: Loretta Lowe MD Acct: [id number] Dis Date: Status: REG ER PHONE #: [phone] Exam Date: 02/2019 1627 FAX #: [phone] Reason: acute Lflank pain EXAMS: CPTCODE: [id number] CT ABD PELVIS W/O CONT 61231 Clinical Indication: acute L flank pain, DATE: 03/17/2019 3:23 PM : 1985; Age: 34 years y/o Male Comparison: March 12, 2019 TECHNIQUE: Volumetric CT acquisition of the abdomen and pelvis without contrast. Axial, coronal and sagittal reconstructions. DLP: 652 mGy-cm CT imaging performed at this location utilizes radiation dose optimization techniques which include one or more of the following: -Automated exposure control - Adjustmentof the mA and/or kV according to patient size -Use of iterative reconstruction technique FINDINGS: Evaluation of the solid organs and vascular structures is limited without intravenous contrast. Lower thorax: Visualized lungs are clear. Liver: Normal. Gallbladder: No calcified stones or wall thickening. Adrenals: Normal. Kidneys and ureters: 2 mm nonobstructing stone within the right kidney lower pole. Interval double- J left ureteral stent placement is seen. 3 mm nonobstructing stone in the left upper pole. Conglomeration of stones within the left lower pole measuring 6 mm.Left mid pole nonobstructing 4 mm stone. 3 mm stone within the distal left ureter. No hydronephrosis. Spleen: Normal. Pancreas: Normal. Visualized Gastrointestinal tract: Stomach is normal. No obstruction. Mild colonic diverticulosis. Peritoneum, mesentery and retroperitoneum: No free air, lymphadenopathy, ascites orloculated fluid. Reproductive organs: Prostate and seminal vesicles are unremarkable. PAGE 1 Signed Report (CONTINUED) Name: MARK SALMERON [facility] [place] : 1985 Age/S: 34 / M[address] Unit #: [id number] Loc: [place] [address] Phys: Loretta Lowe MD Acct: [id number] Date: Status: REG ER PHONE #: [phone] Exam Date: 03/17/2019 1627 FAX #: [phone] Reason: acute L flank pain EXAMS: CPT CODE: [id number] CT ABD PELVIS W/O CONT 44048 <Continued> Bladder: Normal. Soft tissues: Normal. Bones: No acute abnormality. Age- relateddegenerative findings. IMPRESSION: 1. Bilateral nephrolithiasis without hydronephrosis. 2. Interval left double-J ureteral stent placement is seen with 3 mm stone within the distal left ureter. SL: [id number] Electronically Signed by Maya Moore on 02/2019 at 1642 Reported and signed by: Dorie Moore D.O. CC: Leon BLAS Technologist:Nellie Hammer RT(R)(CT) CTDI: DLP: Trnscb Date/Time: 03/17/2019 (766) [email or web address] Orig Print D/T: S: 03/17/2019 (1276) PAGE 2 Signed ReportUA RFLX MICR CULT IF [id number] 16:41:00 Test Item Value Reference Range Comments UA COLOR (test code=COLU) YELLOW YEL/STRAW UA APPEARANCE (test code=APPU) CLOUDY CLEAR UA GLUCOSE DIPSTICK (test code=DGLUU) NEGATIVE NEGATIVE UA BILIRUBIN DIPSTICK (test code=BILU) NEGATIVE NEGATIVE UA KETONE DIPSTICK (test code=KETU) NEGATIVE NEGATIVE UA SPECIFIC GRAVITY (test code=SGU) 1.021 1.005-1.030 UA BLOOD DIPSTICK (test code=REANNA) 3+ NEGATIVE UA PH DIPSTICK (test code=DARIO) 6.0 5.0-7.0 UA PROTEIN DIPSTICK (test code=PROU) 2+ NEGATIVE UA UROBILINIOGEN DIPSTICK (test code=URO) 0.2 mg/dL 0.2-1.0 UA NITRITE DIPSTICK (test code=MARQUES) NEGATIVE NEGATIVE UA LEUKOCYTE ESTERASE DIPSTICK (test code=LEUU) 1+ NEGATIVE UA WBC (test code=WBCU) 4-9 WBC/HPF 0-3 UA RBC (test code=RBCU) >50 RBC/HPF 0-3 UA WBC NO REFLEX (test code=WBCUCL) 4-9 WBC/HPF 0-3 UA BACTERIA (test code=BACU) TRACE /HPF NONE SEEN UA SQUAMOUS CELLS (test code=SQU) 0-5 /HPF NONE SEEN UA MUCUS (test code=MUCU) TRACE /LPF NONE SEEN Indication for culture: Flank PainSpecimen Description: CLEAN CATCHHEPATIC FUNCTION [id number] 16:05:00 Test Item Value Reference Range Comments TOTAL PROTEIN (test code=PROT) 8.0 g/dL 6.4-8.2 ALBUMIN (test code=ALB) 4.30 g/dL 3.4-5.0 BILIRUBIN TOTAL (test code=BILT) 0.3 MG/DL <1.5 BILIRUBIN DIRECT (test code=BILD) 0.10 MG/DL 0.0-0.30 BILIRUBIN INDIRECT (test code=BILIND) 0.20 MG/DL SGOT/AST (test code=AST) 15 IUnit/L 15-37 SGPT/ALT (test code=ALT) 32 IUnit/L 15-65 ALKALINE PHOSPHATASE TOTAL (test code=ALKP) 52 IUnit/L 20-125 [id number] 16:05:00 Test Item Value Reference Range Comments LIPASE (test code=LIP) 63 IUnit/L 73-393 PROTHROMBIN [id number] 15:59:00 Test Item Value Reference Range Comments PROTHROMBIN TIME PATIENT 11.4 SECONDS 9.3-12.9 (test code=PTP) INTERNATIONAL NORMAL RATIO 1.0 0.8-1.2 TARGET INR BY (test code=INR) INDICATION Indication INR1. Prophylaxis of venous thrombosis 2.0 - 3.0 (orthopedic surgery), Prophylaxis of venous thrombosis (other than high-risk surgery), Treatment of Deep Vein Thrombosis/Pulmonary Embolism, Prevention of systemic embolism - Tissue heart valves, Acute Myocardial Infarction (to prevent systemic embolism), Valvular heart disease, Atrial Fibrillation, Bileaflet mechanical valve in aortic position.2. Mechanical prosthetic valves (high risk), 2.5 - 3.5 Presence of Lupus Anticoagulant or Antiphospholipid Antibodies, Prevention of systemic embolism - Acute Myocardial Infarction (to prevent recurrent infarct). 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 [facility] CHEMISTRY 8 [id number] 15:46:00 Test Item Value Reference Range Comments ISTAT-SODIUM (test code=NAP) MMOL/L 134-147 ISTAT-POTASSIUM (test code=KP) MMOL/L 3.4-5.0 ISTAT-CHLORIDE (test code=CLP) MMOL/L 100-108 ISTAT CARBON DIOXIDE (test code=ISTAT-CO2) mmol/L 21-33 ISTAT CALCIUM IONIZED (test code=ISTAT-SANDY) MG/DL 1.12-1.32 ISTAT-GLUCOSE (test code=GLUP) MG/DL 70-110 ISTAT-BUN (test code=BUNP) MG/DL 7-18 BEDSIDE CREATININE (test code=CREATBED) MG/DL 0.6-1.3 GLOMERULAR FILTRATION RATE POC (test code=GFRBED) 103 ML/MIN CHEMISTRY 8 [id number] 15:46:00 Test Item Value Reference Range Comments ISTAT-SODIUM (test code=NAP) 140 MMOL/L 134-147 ISTAT-POTASSIUM (test 4.1 MMOL/L 3.4-5.0 code=KP) ISTAT-CHLORIDE (test 104 MMOL/L 100-108 Performed by certified code=CLP) 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 [facility] ISTAT CARBON DIOXIDE (test 25.0 mmol/L 21-33 code=ISTAT-CO2) ISTAT CALCIUM IONIZED (test 1.20 MG/DL 1.12-1.32 code=ISTAT-SANDY) ISTAT-GLUCOSE (test 81 MG/DL 70-110 code=GLUP) ISTAT-BUN (test code=BUNP) 22 MG/DL 7-18 BEDSIDE CREATININE (test 0.9 MG/DL 0.6-1.3 code=CREATBED) GLOMERULAR FILTRATION RATE 103 ML/MIN POC (test code=GFRBED) CBC W/AUTO [id number] 15:44:00 Test Item Value Reference Range Comments WHITE BLOOD CELL (test code=WBC) 8.73 x10 3/uL 4.5-11.0 RED BLOOD CELL (test code=RBC) 4.54 x10 6/uL 4.00-5.60 HEMOGLOBIN (test code=HGB) 15.2 g/dL 12.5-16.9 HEMATOCRIT (test code=HCT) 44.2 % 37.5-50.7 MEAN CELL VOLUME (test code=MCV) 97.4 fL 81.0-99.0 MEAN CELL HGB (test code=MCH) 33.5 pg 27.0-33.0 MEAN CELL HGB CONCETRATION (test code=MCHC) 34.4 g/dL 33.0-37.0 RED CELL DISTRIBUTION WIDTH CV (test code=RDW) 12.4 % 11.5-14.5 RED CELL DISTRIBUTION WIDTH SD (test 44.8 fL 37.0-54.0 code=RDW-SD) PLATELET COUNT (test code=PLT) 347 x10 3/uL 150-400 MEAN PLATELET VOLUME (test code=MPV) 9.4 fL 7.0-9.0 NEUTROPHIL % (test code=NT%) 54.8 % 56.0-77.0 IMMATURE GRANULOCYTE % (test code=IG%) 0.5 % 0.0-2.0 LYMPHOCYTE % (test code=LY%) 32.8 % 14.0-32.0 MONOCYTE % (test code=MO%) 8.8 % 4.8-9.0 EOSINOPHIL % (test code=EO%) 2.4 % 0.3-3.7 BASOPHIL % (test code=BA%) 0.7 % 0.0-2.0 NUCLEATED RBC % (test code=NRBC%) 0.0 % 0-0 NEUTROPHIL # (test code=NT#) 4.79 x10 3/uL 2.0-7.6 IMMATURE GRANULOCYTE # (test code=IG#) 0.04 x10 3/uL 0.00-0.03 LYMPHOCYTE # (test code=LY#) 2.86 x10 3/uL 1.0-3.8 MONOCYTE # (test code=MO#) 0.77 x10 3/uL 0.1-0.8 EOSINOPHIL # (test code=EO#) 0.21 x10 3/uL 0.0-0.2 BASOPHIL # (test code=BA#) 0.06 x10 3/uL 0.0-0.2 NUCLEATED RBC # (test code=NRBC#) 0.00 x10 3/uL 0.0-0.1 MANUAL DIFF REQUIRED (test code=MDIFF) NO - US RETROPERITONEAL [id number] 16:46:00 Name: MARK SALMERON [facility] : 1985 Age/S: 34 / M [address] [place] [address] Unit #: [id number] Loc: [place], [place] Phys: Denis Mo MD Acct: [id number] Dis Date: Status: ADM IN PHONE #: [phone] Exam Date: 12/2018 1602 FAX #: [phone] Reason: CONTINUED LEFT FLANK PAIN EXAMS: CPTCODE: [id number] US RETROPERITONEAL COM [id number] Patient: MARK SALMERON. : 1985 ; Age: 34 years; Gender: Male. MR: [id number].Ordering physician: Denis Mo MD. PROCEDURE: RENAL ULTRASOUND INDICATION: Continue left flank pain, obstructing calculus in the left UPJ with subsequent stent placement. COMPARISON: CT abdomen and pelvis 03/12/2019. TECHNIQUE: Sonographic evaluation of the kidneys and urinary bladder was performed. FINDINGS: KIDNEYS: The right kidney measures 11.2 cm in length. Normal contour and parenchymal echogenicity. There is no hydronephrosis, nephrolithiasis, mass lesion or perinephric collection. The left kidney measures 12.3 cm in length. Proximal aspect of left ureteral stent noted. No persisting left-sided pelvocaliectasis to suggest persistent obstructive uropathy. Previously noted nonobstructing left renal calculi are not visualized. Normal contour and parenchymal echogenicity. There is no mass lesion or perinephric collection. BLADDER: Distal aspect of left ureteral stent noted within bladder. Bladder isgrossly unremarkable. Partially imaged inferior vena cava, abdominal aorta and aortic bifurcation are unremarkable. IMPRESSION: 1. Proximal and distal aspects of left ureteral stent. No persisting left-sided pelvocaliectasis to suggest persistent obstructive uropathy. Previously noted nonobstructing left renal calculi are not visualized. 2. Unremarkable right kidney. PAGE 1 Signed Report (CONTINUED) Name: MARK SALMERON [facility] : 1985 Age/S: 34 / M [address] [place] [address] Blvd Unit #: [id number] Loc: [place] [address] Phys: Denis Mo MD Acct: [id number] Dis Date: Status: ADM IN PHONE #: [phone] Exam Date: 03/15/2019 1602FAX #: [phone] Reason: CONTINUED LEFT FLANK PAIN EXAMS: CPT CODE: [id number] [facility] [address] <Continued> SL: [id number] at 1646 Reported and signed by: Ricardo Reed M.D. CC: Technologist: Theresa Chery RDMS (AB) (OB) Trnscb Date/Time: 03/15/2019 (1645) Jo AnnSL7 Orig Print D/T : S: 03/15/2019 (1648) Probe: PAGE 2 Signed ReportCBC W/AUTO [id number] 12:17:00 Test Item Value Reference Range Comments WHITE BLOOD CELL (test code=WBC) 6.78 x10 3/uL 4.5-11.0 RED BLOOD CELL (test code=RBC) 4.31 x10 6/uL 4.00-5.60 HEMOGLOBIN (test code=HGB) 14.4 g/dL 12.5-16.9 HEMATOCRIT (test code=HCT) 41.8 % 37.5-50.7 MEAN CELL VOLUME (test code=MCV) 97.0 fL 81.0-99.0 MEAN CELL HGB (test code=MCH) 33.4 pg 27.0-33.0 MEAN CELL HGB CONCETRATION (test code=MCHC) 34.4 g/dL 33.0-37.0 RED CELL DISTRIBUTION WIDTH CV (test code=RDW) 12.4 % 11.5-14.5 RED CELL DISTRIBUTION WIDTH SD (test 44.5 fL 37.0-54.0 code=RDW-SD) PLATELET COUNT (test code=PLT) 314 x10 3/uL 150-400 MEAN PLATELET VOLUME (test code=MPV) 9.7 fL 7.0-9.0 NEUTROPHIL % (test code=NT%) 60.8 % 56.0-77.0 IMMATURE GRANULOCYTE % (test code=IG%) 0.3 % 0.0-2.0 LYMPHOCYTE % (test code=LY%) 26.5 % 14.0-32.0 MONOCYTE % (test code=MO%) 8.6 % 4.8-9.0 EOSINOPHIL % (test code=EO%) 3.2 % 0.3-3.7 BASOPHIL % (test code=BA%) 0.6 % 0.0-2.0 NUCLEATED RBC % (test code=NRBC%) 0.0 % 0-0 NEUTROPHIL # (test code=NT#) 4.12 x10 3/uL 2.0-7.6 IMMATURE GRANULOCYTE # (test code=IG#) 0.02 x10 3/uL 0.00-0.03 LYMPHOCYTE # (test code=LY#) 1.80 x10 3/uL 1.0-3.8 MONOCYTE # (test code=MO#) 0.58 x10 3/uL 0.1-0.8 EOSINOPHIL # (test code=EO#) 0.22 x10 3/uL 0.0-0.2 BASOPHIL # (test code=BA#) 0.04 x10 3/uL 0.0-0.2 NUCLEATED RBC # (test code=NRBC#) 0.00 x10 3/uL 0.0-0.1 MANUAL DIFF REQUIRED (test code=MDIFF) NO BASIC METABOLIC [id number] 12:10:00 Test Item Value Reference Range Comments SODIUM (test code=NA) 139 mEq/L 134-147 POTASSIUM (test code=K) 3.7 mEq/L 3.4-5.0 CHLORIDE (test code=CL) 107 mEq/L 100-108 CARBON DIOXIDE (test code=CO2) 27 mEq/L 21-33 ANION GAP (test code=GAP) 9 0-20 GLUCOSE (test code=GLU) 105 mg/dL 70-110 BLOOD UREA NITROGEN (test 14 mg/dL 7-18 code=BUN) GLOMERULAR FILTRATION RATE 129.1 105-110 Units of measure=ml/min/1.73 (test code=GFR) m2 CREATININE (test code=CREAT) 0.7 mg/dL 0.6-1.3 CALCIUM (test code=CA) 8.7 mg/dL 8.0-10.5 BASIC METABOLIC [id number] 12:07:00 Test Item Value Reference Range Comments SODIUM (test code=NA) 139 mEq/L 134-147 POTASSIUM (test code=K) 3.7 mEq/L 3.4-5.0 CHLORIDE (test code=CL) 107 mEq/L 100-108 CARBON DIOXIDE (test code=CO2) 27 mEq/L 21-33 ANION GAP (test code=GAP) 9 0-20 GLUCOSE (test code=GLU) 105 mg/dL 70-110 BLOOD UREA NITROGEN (test code=BUN) 14 mg/dL 7-18 GLOMERULAR FILTRATION RATE (test code=GFR) 105-110 CREATININE (test code=CREAT) mg/dL 0.6-1.3 CALCIUM (test code=CA) 8.7 mg/dL 8.0-10.5 BASIC METABOLIC [id number] 13:59:00 Test Item Value Reference Range Comments SODIUM (test code=NA) 139 mEq/L 134-147 POTASSIUM (test code=K) 3.7 mEq/L 3.4-5.0 CHLORIDE (test code=CL) 106 mEq/L 100-108 CARBON DIOXIDE (test code=CO2) 28 mEq/L 21-33 ANION GAP (test code=GAP) 9 0-20 GLUCOSE (test code=GLU) 117 mg/dL 70-110 BLOOD UREA NITROGEN (test 13 mg/dL 7-18 code=BUN) GLOMERULAR FILTRATION RATE 110.7 105-110 Units of measure=ml/min/1.73 (test code=GFR) m2 CREATININE (test code=CREAT) 0.8 mg/dL 0.6-1.3 CALCIUM (test code=CA) 9.1 mg/dL 8.0-10.5 CBC W/AUTO [id number] 13:37:00 Test Item Value Reference Range Comments WHITE BLOOD CELL (test code=WBC) 10.53 x10 3/uL 4.5-11.0 RED BLOOD CELL (test code=RBC) 4.46 x10 6/uL 4.00-5.60 HEMOGLOBIN (test code=HGB) 15.0 g/dL 12.5-16.9 HEMATOCRIT (test code=HCT) 43.8 % 37.5-50.7 MEAN CELL VOLUME (test code=MCV) 98.2 fL 81.0-99.0 MEAN CELL HGB (test code=MCH) 33.6 pg 27.0-33.0 MEAN CELL HGB CONCETRATION (test code=MCHC) 34.2 g/dL 33.0-37.0 RED CELL DISTRIBUTION WIDTH CV (test 12.2 % 11.5-14.5 code=RDW) RED CELL DISTRIBUTION WIDTH SD (test 44.5 fL 37.0-54.0 code=RDW-SD) PLATELET COUNT (test code=PLT) 300 x10 3/uL 150-400 MEAN PLATELET VOLUME (test code=MPV) 9.5 fL 7.0-9.0 NEUTROPHIL % (test code=NT%) 72.9 % 56.0-77.0 IMMATURE GRANULOCYTE % (test code=IG%) 0.5 % 0.0-2.0 LYMPHOCYTE % (test code=LY%) 17.8 % 14.0-32.0 MONOCYTE % (test code=MO%) 7.3 % 4.8-9.0 EOSINOPHIL % (test code=EO%) 1.1 % 0.3-3.7 BASOPHIL % (test code=BA%) 0.4 % 0.0-2.0 NUCLEATED RBC % (test code=NRBC%) 0.0 % 0-0 NEUTROPHIL # (test code=NT#) 7.68 x10 3/uL 2.0-7.6 IMMATURE GRANULOCYTE # (test code=IG#) 0.05 x10 3/uL 0.00-0.03 LYMPHOCYTE # (test code=LY#) 1.87 x10 3/uL 1.0-3.8 MONOCYTE # (test code=MO#) 0.77 x10 3/uL 0.1-0.8 EOSINOPHIL # (test code=EO#) 0.12 x10 3/uL 0.0-0.2 BASOPHIL # (test code=BA#) 0.04 x10 3/uL 0.0-0.2 NUCLEATED RBC # (test code=NRBC#) 0.00 x10 3/uL 0.0-0.1 MANUAL DIFF REQUIRED (test code=MDIFF) NO BASIC METABOLIC [id number] 08:09:00 Test Item Value Reference Range Comments SODIUM (test code=NA) 139 mEq/L 134-147 POTASSIUM (test code=K) 3.7 mEq/L 3.4-5.0 CHLORIDE (test code=CL) 108 mEq/L 100-108 CARBON DIOXIDE (test code=CO2) 25 mEq/L 21-33 ANION GAP (test code=GAP) 10 0-20 GLUCOSE (test code=GLU) 102 mg/dL 70-110 BLOOD UREA NITROGEN (test 10 mg/dL 7-18 code=BUN) GLOMERULAR FILTRATION RATE 110.7 105-110 Units of measure=ml/min/1.73 (test code=GFR) m2 CREATININE (test code=CREAT) 0.8 mg/dL 0.6-1.3 CALCIUM (test code=CA) 8.5 mg/dL 8.0-10.5 CBC W/AUTO [id number] 06:49:00 Test Item Value Reference Range Comments WHITE BLOOD CELL (test code=WBC) 8.95 x10 3/uL 4.5-11.0 RED BLOOD CELL (test code=RBC) 3.94 x10 6/uL 4.00-5.60 HEMOGLOBIN (test code=HGB) 13.2 g/dL 12.5-16.9 HEMATOCRIT (test code=HCT) 39.7 % 37.5-50.7 MEAN CELL VOLUME (test code=MCV) 100.8 fL 81.0-99.0 MEAN CELL HGB (test code=MCH) 33.5 pg 27.0-33.0 MEAN CELL HGB CONCETRATION (test code=MCHC) 33.2 g/dL 33.0-37.0 RED CELL DISTRIBUTION WIDTH CV (test code=RDW) 12.8 % 11.5-14.5 RED CELL DISTRIBUTION WIDTH SD (test 47.9 fL 37.0-54.0 code=RDW-SD) PLATELET COUNT (test code=PLT) 260 x10 3/uL 150-400 MEAN PLATELET VOLUME (test code=MPV) 10.0 fL 7.0-9.0 NEUTROPHIL % (test code=NT%) 60.7 % 56.0-77.0 IMMATURE GRANULOCYTE % (test code=IG%) 0.3 % 0.0-2.0 LYMPHOCYTE % (test code=LY%) 27.6 % 14.0-32.0 MONOCYTE % (test code=MO%) 9.4 % 4.8-9.0 EOSINOPHIL % (test code=EO%) 1.6 % 0.3-3.7 BASOPHIL % (test code=BA%) 0.4 % 0.0-2.0 NUCLEATED RBC % (test code=NRBC%) 0.0 % 0-0 NEUTROPHIL # (test code=NT#) 5.43 x10 3/uL 2.0-7.6 IMMATURE GRANULOCYTE # (test code=IG#) 0.03 x10 3/uL 0.00-0.03 LYMPHOCYTE # (test code=LY#) 2.47 x10 3/uL 1.0-3.8 MONOCYTE # (test code=MO#) 0.84 x10 3/uL 0.1-0.8 EOSINOPHIL # (test code=EO#) 0.14 x10 3/uL 0.0-0.2 BASOPHIL # (test code=BA#) 0.04 x10 3/uL 0.0-0.2 NUCLEATED RBC # (test code=NRBC#) 0.00 x10 3/uL 0.0-0.1 MANUAL DIFF REQUIRED (test code=MDIFF) NO - XR FLUOROSCOPY 0-60 [id number] 15:30:00 FAX: Simon Galvez MD [phone] [place]: St: ADM Name: MARK SALMERON [facility] : 1985 Age/S: 34/M [address] [place] [address] Unit#: [id number] Loc: [id number] [place] [id number] Phys: Simon Ramirez MD Acct: [id number] Dis Date: Status: ADM IN PHONE #: [phone] Exam Date: 03/12/2019 1446 FAX #: [phone] Reason: LEFT URETERAL STONE, HYDRONEPHROSIS EXAMS: CPT CODE: [id number] XR FLUOROSCOPY 0-60 MIN 32599 Study: - XR FLUOROSCOPY 0-60 MIN 03/12/2019 2:16 PM Patient Name: MARK SALMERON MR: [id number] DATE: 03/12/2019 2:16 PM : 03/1985; Age: 34 years y/o Male Ordering Physician: Simon Ramirez MD Clinical Indication: LEFT URETERAL STONE, HYDRONEPHROSIS Intraprocedural fluoroscopy was provided by the Department of Radiology. Any images obtained were interpreted by the surgeon intraoperatively. Fluoroscopy time: 39 seconds Reference Air Kerma: 17.2 mGy SL: [id number] * * Electronically Signed by Maya Moore on at 1530 Reported and signed by: Dorie Moore D.O. CC: Simon Ramirez MD Technologist: RT Lawson(Palak) Trnscrd Date/Time/By: 03/12/2019 (1530) : By: [email or web address] Orig Print D/T: S: 09/2018 (6446) PAGE 1 Signed ReportDRUGS OF ABUSE SCREEN [id number] 14:08:00 Test Item Value Reference Range Comments URN COCAINE (test code=COCAURN) NEGATIVE NEGATIVE URN CANNABINOIDS (test POSITIVE NEGATIVE code=CANNABURN) URN AMPHETAMINE (test NEGATIVE NEGATIVE code=AMPHETURN) URN BARBITURATE (test NEGATIVE NEGATIVE code=BARBITURN) URN BENZODIAZEPINE (test NEGATIVE NEGATIVE Cut-off value:200 ng/mL code=BENZOURN) URN OPIATES (test POSITIVE NEGATIVE Cut-off value:2000 ng/mL code=OPIATURN) URN PHENCYCLIDINE (PCP) (test NEGATIVE NEGATIVE Cutoffs:Barbiturates code=PHENCURN) 200 ng/mLBenzodiazepines 200 ng/mLTHC Cannabinoids 50 ng/mLOpiates(Morphine) 2000 ng/mLAmphetamine 1000 ng/mLCocaine 300 ng/mLPCP phencyclidine 25 ng/mL Unconfirmed screening results shouldnot be used for non-medical purposes. DRUGS OF ABUSE SCREEN [id number] 13:58:00 Test Item Value Reference Range Comments URN COCAINE (test code=COCAURN) NEGATIVE NEGATIVE URN CANNABINOIDS (test NEGATIVE code=CANNABURN) URN AMPHETAMINE (test NEGATIVE NEGATIVE code=AMPHETURN) URN BARBITURATE (test NEGATIVE NEGATIVE code=BARBITURN) URN BENZODIAZEPINE (test NEGATIVE NEGATIVE Cut-off value:200 ng/mL code=BENZOURN) URN OPIATES (test NEGATIVE code=OPIATURN) URN PHENCYCLIDINE (PCP) (test NEGATIVE NEGATIVE Cutoffs:Barbiturates code=PHENCURN) 200 ng/mLBenzodiazepines 200 ng/mLTHC Cannabinoids 50 ng/mLOpiates(Morphine) 2000 ng/mLAmphetamine 1000 ng/mLCocaine 300 ng/mLPCP phencyclidine 25 ng/mL Unconfirmed screening results shouldnot be used for non-medical purposes. COMPREHENSIVE METABOLIC [id number] 04:00:00 Test Item Value Reference Range Comments SODIUM (test code=NA) 139 mEq/L 134-147 POTASSIUM (test code=K) 3.5 mEq/L 3.4-5.0 CHLORIDE (test code=CL) 106 mEq/L 100-108 CARBON DIOXIDE (test code=CO2) 29 mEq/L 21-33 ANION GAP (test code=GAP) 8 0-20 GLUCOSE (test code=GLU) 116 mg/dL 70-110 BLOOD UREA NITROGEN (test 15 mg/dL 7-18 code=BUN) GLOMERULAR FILTRATION RATE 76.6 105-110 Units of (test code=GFR) measure=ml/min/1.73 m2 CREATININE (test code=CREAT) 1.1 mg/dL 0.6-1.3 TOTAL PROTEIN (test code=PROT) 7.2 g/dL 6.4-8.2 ALBUMIN (test code=ALB) 3.90 g/dL 3.4-5.0 CALCIUM (test code=CA) 9.1 mg/dL 8.0-10.5 BILIRUBIN TOTAL (test 0.3 MG/DL <1.5 code=BILT) SGOT/AST (test code=AST) 15 IUnit/L 15-37 SGPT/ALT (test code=ALT) 35 IUnit/L 15-65 ALKALINE PHOSPHATASE TOTAL 45 IUnit/L 20-125 (test code=ALKP) COMPREHENSIVE METABOLIC [id number] 03:58:00 Test Item Value Reference Range Comments SODIUM (test code=NA) 139 mEq/L 134-147 POTASSIUM (test code=K) 3.5 mEq/L 3.4-5.0 CHLORIDE (test code=CL) 106 mEq/L 100-108 CARBON DIOXIDE (test code=CO2) 29 mEq/L 21-33 ANION GAP (test code=GAP) 8 0-20 GLUCOSE (test code=GLU) 116 mg/dL 70-110 BLOOD UREA NITROGEN (test code=BUN) 15 mg/dL 7-18 GLOMERULAR FILTRATION RATE (test code=GFR) 105-110 CREATININE (test code=CREAT) mg/dL 0.6-1.3 TOTAL PROTEIN (test code=PROT) g/dL 6.4-8.2 ALBUMIN (test code=ALB) g/dL 3.4-5.0 CALCIUM (test code=CA) 9.1 mg/dL 8.0-10.5 BILIRUBIN TOTAL (test code=BILT) MG/DL <1.5 SGOT/AST (test code=AST) IUnit/L 15-37 SGPT/ALT (test code=ALT) IUnit/L 15-65 ALKALINE PHOSPHATASE TOTAL (test code=ALKP) IUnit/L 20-125 CBC W/AUTO [id number] 03:26:00 Test Item Value Reference Range Comments WHITE BLOOD CELL (test code=WBC) 15.91 x10 3/uL 4.5-11.0 RED BLOOD CELL (test code=RBC) 4.42 x10 6/uL 4.00-5.60 HEMOGLOBIN (test code=HGB) 14.9 g/dL 12.5-16.9 HEMATOCRIT (test code=HCT) 44.2 % 37.5-50.7 MEAN CELL VOLUME (test code=MCV) 100.0 fL 81.0-99.0 MEAN CELL HGB (test code=MCH) 33.7 pg 27.0-33.0 MEAN CELL HGB CONCETRATION (test code=MCHC) 33.7 g/dL 33.0-37.0 RED CELL DISTRIBUTION WIDTH CV (test 12.6 % 11.5-14.5 code=RDW) RED CELL DISTRIBUTION WIDTH SD (test 47.6 fL 37.0-54.0 code=RDW-SD) PLATELET COUNT (test code=PLT) 310 x10 3/uL 150-400 MEAN PLATELET VOLUME (test code=MPV) 10.1 fL 7.0-9.0 NEUTROPHIL % (test code=NT%) 71.6 % 56.0-77.0 IMMATURE GRANULOCYTE % (test code=IG%) 0.6 % 0.0-2.0 LYMPHOCYTE % (test code=LY%) 17.7 % 14.0-32.0 MONOCYTE % (test code=MO%) 8.5 % 4.8-9.0 EOSINOPHIL % (test code=EO%) 1.3 % 0.3-3.7 BASOPHIL % (test code=BA%) 0.3 % 0.0-2.0 NUCLEATED RBC % (test code=NRBC%) 0.0 % 0-0 NEUTROPHIL # (test code=NT#) 11.40 x10 3/uL 2.0-7.6 IMMATURE GRANULOCYTE # (test code=IG#) 0.09 x10 3/uL 0.00-0.03 LYMPHOCYTE # (test code=LY#) 2.82 x10 3/uL 1.0-3.8 MONOCYTE # (test code=MO#) 1.35 x10 3/uL 0.1-0.8 EOSINOPHIL # (test code=EO#) 0.21 x10 3/uL 0.0-0.2 BASOPHIL # (test code=BA#) 0.04 x10 3/uL 0.0-0.2 NUCLEATED RBC # (test code=NRBC#) 0.00 x10 3/uL 0.0-0.1 MANUAL DIFF REQUIRED (test code=MDIFF) NO URINALYSIS [id number] 03:05:00 Test Item Value Reference Range Comments UA COLOR (test code=COLU) STRAW YEL/STRAW UA APPEARANCE (test code=APPU) CLEAR CLEAR UA GLUCOSE DIPSTICK (test code=DGLUU) NEGATIVE NEGATIVE UA BILIRUBIN DIPSTICK (test code=BILU) NEGATIVE NEGATIVE UA KETONE DIPSTICK (test code=KETU) NEGATIVE NEGATIVE UA SPECIFIC GRAVITY (test code=SGU) 1.014 1.005-1.030 UA BLOOD DIPSTICK (test code=REANNA) 1+ NEGATIVE UA PH DIPSTICK (test code=DARIO) 7.0 5.0-7.0 UA PROTEIN DIPSTICK (test code=PROU) NEGATIVE NEGATIVE UA UROBILINIOGEN DIPSTICK (test code=URO) 0.2 mg/dL 0.2-1.0 UA NITRITE DIPSTICK (test code=MARQUES) NEGATIVE NEGATIVE UA LEUKOCYTE ESTERASE DIPSTICK (test NEGATIVE NEGATIVE code=LEUU) UA RBC (test code=RBCU) >50 RBC/HPF 0-3 UA WBC NO REFLEX (test code=WBCUCL) 0-3 WBC/HPF 0-3 UA BACTERIA (test code=BACU) TRACE /HPF NONE SEEN UA SQUAMOUS CELLS (test code=SQU) NONE SEEN /HPF NONE SEEN UA MUCUS (test code=MUCU) TRACE /LPF NONE SEEN - CT ABD PELVIS W/O [id number] 02:17:00 Name: MARK SALMERON [facility] : 1985 Age/S: 34 / M [address] [place] [address] Unit #: [id number] Loc: [place], [id number] Phys: Cortez Dickson MD Acct: [id number] Dis Date: Status: PRE ER PHONE #: [phone] Exam Date: 09/2018 0202 FAX #: [phone] Reason: L FLANKPAIN EXAMS: CPTCODE: [id number] CT ABD PELVIS W/O CONT 32796 PROCEDURE: CT abdomen and pelvis without contrast dated 03/12/2019 INDICATION: Acute left flank andleft lower quadrant pain. COMPARISON: CT abdomen dated 01/19/2019 TECHNIQUE: A renal stone protocol CT of the abdomen pelvis was performed using helical images from the upper abdomen through the pubic symphysis with subsequent sagittal and coronal reconstruction. IV CONTRAST: None. GI CONTRAST: None. CT imaging performed at [facility] utilizes radiation dose optimization techniques which include one or more of the followin) Automated exposure control; 2) Adjustment of mA and/or kV; 3) Use of iterative reconstructive technique. CT radiation dose DLP (mGy-cm): 664. FINDINGS: URINARY: A 8 x 6 x 7 mm calcified stone with an average internal density of 1198 Hounsfield units is identified in the left ureter at the L3 level with associated left hydronephrosis. The left ureter distal to the calculus is nondilated. A 4 mm calcified stone is notedin the distal left ureter at the left ureteral vesicle junction without evidence of acute obstruction. A 4 mm calcified stone is identified in the right mid kidney and a 2 mm calcified stone is noted in the lower pole of the right kidney. There is no CT evidence of acute right renal collecting system obstruction or calcified right ureteral stone. SOLID ORGANS : No acute CT abnormalities of the liver, spleen, pancreas or adrenal glands are detected. BILIARY: The gallbladder is normally distended. No significant biliary ductal dilatation is identified. BOWEL: Bowel assessment is limited by the absence of bowel contrast. No gross abnormalities of the stomach or duodenum are identified. No small bowel dilatation is identified to suggest acute obstruction. The appendix is identified and is not acutely inflamed. Scattered colonic diverticula are noted without CT evidence of acute diverticulitis. PAGE 1 Signed Report (CONTINUED) Name: MARK SALMERON [facility] : 1985 Age/S: 34 / M [address] [place] [address] Blvd Unit #: [id number] Loc: [place] [address] Phys: Cortez Dickson MD Acct:[id number] Dis Date: Status: PRE ER PHONE #: [phone] Exam Date: 03/12/2019 0202 FAX #: [phone] Reason: L FLANK PAIN EXAMS: CPT CODE : [id number] CT ABD PELVIS W/O CONT 15264 <Continued> PERITONEUM: There is no evidence of free intraperitoneal air or significant free intraperitoneal fluid. RETROPERITONEUM: The abdominal aorta is normal in caliber. There is no evidence of retroperitoneal mass or adenopathy. PELVIS: The bladder has an unremarkable appearance. No enlarged pelvic lymph nodes are noted. LOWER CHEST: The lung bases appear clear of acute disease. 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 ADDITIONAL FINDINGS: None. IMPRESSION: 1. Acute left renal collecting system obstruction secondary to a 8 x 6 x 7 mm calcified stone in theproximal left ureter at the L3 level. 2. A 4 mm calcified stone is identified in the distalleft ureter at the left ureterovesical junction without acute obstruction. 3. Bilateral nephrolithiasis. 4. Diverticulosis without CT evidence of acute diverticulitis. SL: 131 at 0217 Reported and signed by: Brayan Campa M.D. CC: Cortez Dickson MD Technologist:Camryn Haines, RT(R)(CT) CTDI: DLP: Trnscb Date/Time: 03/12/2019 (216) [email or web address] Orig Print D/T: S: 03/12/2019 (220) PAGE 2 Signed Report- CT ABD PELVIS W/O [id number] 12:15:00 Name: AMRK SALMERON [facility] : 1985 Age/S: 33 / M [address] [place] [address] Unit #: [id number] Loc: [id number] Phys: Max Lawton Acct: [id number] Dis Date: Status: REG ER PHONE #: [phone] Exam Date: 01/19/2019 1045 FAX #: [phone] Reason : L sidedlower abdominal and flank pain with jonah EXAMS: CPTCODE: [id number] CT ABD PELVIS W/O CONT 43655 STUDY: - CT ABD PELVIS W/O CONT 2018 10:14 AM Ordering Physician: AYUSH Arteaga Patient Name: MARK SALMERON MR: [id number] : 1985; Age: 33 years y/o Male Clinical Indication: L sided lower abdominal and flank pain with dark urine Comparison: July 22, 2016 CT TECHNIQUE: Multiple contiguous noncontrast transaxial CT images were obtained through the abdomen and pelvis. Sagittal and coronal reformatted images were prepared. DOSE: CT imaging performed at this location utilizes radiationdose optimization technique which includes one or more of the followin) Automated exposure control; 2) Adjustment of the mA and/or kV according to patient's size; 3) Use of iterative reconstruction techniques. DLP (mGy-cm): 567 CT ABDOMEN AND PELVIS WITHOUT CONTRAST: VISUALIZED LUNG BASES: No significant abnormality. BOWEL: Normal nonobstructed bowel gas pattern. APPENDIX: Normal appendix without inflammatory change. STOMACH: Normal for degree of distention. PERITONEUM AND MESENTERY: Free Air: No evidence of pneumoperitoneum. Free Fluid: No evidence of significant free fluid, loculated fluid, peripherally enhancing abscess, or hemorrhage. Mesenteric and peritoneal fat: Normal without focal lesion or inflammation. LYMPH NODES: No lymphadenopathy or mass. VASCULAR: Abdominal Aorta: Normal caliber abdominal aorta without aneurysm or dissection. IVC: Normal caliber nonenhanced. PAGE 1 Signed Report (CONTINUED) Name: MARK SALMERON [facility] : 1985 Age/S: 33 / M [address] [place] [address] Unit #: [id number] Loc: [place] [address] Phys: Max Lawton Acct: [id number] Dis Date: Status: REG ER PHONE #: [phone] Exam Date: 01/19/2019 1045 FAX #: [phone] Reason: L sided lower abdominal and flank pain with jonah EXAMS: CPT CODE: [id number] CT ABD PELVIS W/O CONT 21349 <Continued> ABDOMINAL ORGANS: Liver: Normal nonenhanced without discrete lesion. Gallbladder: Normal appearing gallbladder without calcified gallstones, gallbladder wall thickening, or pericholecystic inflammation. Biliary Tree: Normal without dilatation. Kidneys: No hydronephrosis. Multiple left-sided renal calculi, measuring up to 0.6 cm. Questionable punctate calculi in the right inferior pole. Adrenal Glands: Normal nonenhanced without discrete lesion. Pancreas: Normal nonenhanced without discrete lesion. Spleen: Normal nonenhanced without discrete lesion. PELVIC ORGANS : Urinary bladder: Normal nonenhanced appropriate for degree of distention. Reproductive organs: No organomegaly or mass lesions. SOFT TISSUES: No suspicious soft tissue lesion or abnormality. OSSEOUS STRUCTURES: No fracture, dislocation, or suspicious focal osseous lesion. IMPRESSION: 1. No hydronephrosis.2. Multiple left renal calculi, the largest a 0.6 cm calculus in the left inferior pole SL: [id number] PAGE 2 Signed Report (CONTINUED) Name: MARK SALMERON [facility] : 1985 Age/S: 33 / M [address] [place] [address] Blvd Unit #: [id number] Loc: [place] [address] Phys: Max Lawton Acct: [id number] Dis Date: Status: REG ER PHONE #: [phone] Exam Date: 01/19/2019 1045 FAX #: [phone] Reason : L sided lower abdominal and flank pain with jonah EXAMS: CPT CODE: [id number] CT ABD PELVIS W/O CONT 35370 <Continued> at 1215 Reported and signed by: William Griffin M.D. CC: Max PEACOCK Technologist:RT Vladimir(R)(CT) CTDI: DLP: Trnscb Date/Time: 01/19/2019 (0745) [email or web address] Orig Print D/T: S: 01/19/2019 (8556) PAGE 3 Signed ReportURINALYSIS [id number] 11:45:00 Test Item Value Reference Range Comments UA COLOR (test code=COLU) YELLOW YEL/STRAW UA APPEARANCE (test code=APPU) SL CLOUDY CLEAR UA GLUCOSE DIPSTICK (test code=DGLUU) NEGATIVE NEGATIVE UA BILIRUBIN DIPSTICK (test code=BILU) NEGATIVE NEGATIVE UA KETONE DIPSTICK (test code=KETU) NEGATIVE NEGATIVE UA SPECIFIC GRAVITY (test code=SGU) 1.028 1.005-1.030 UA BLOOD DIPSTICK (test code=REANNA) 3+ NEGATIVE UA PH DIPSTICK (test code=DARIO) 5.0 5.0-7.0 UA PROTEIN DIPSTICK (test code=PROU) 1+ NEGATIVE UA UROBILINIOGEN DIPSTICK (test code=URO) 0.2 mg/dL 0.2-1.0 UA NITRITE DIPSTICK (test code=MARQUES) NEGATIVE NEGATIVE UA LEUKOCYTE ESTERASE DIPSTICK (test NEGATIVE NEGATIVE code=LEUU) UA RBC (test code=RBCU) >50 RBC/HPF 0-3 UA WBC NO REFLEX (test code=WBCUCL) 4-9 WBC/HPF 0-3 UA BACTERIA (test code=BACU) TRACE /HPF NONE SEEN UA SQUAMOUS CELLS (test code=SQU) NONE SEEN /HPF NONE SEEN UA MUCUS (test code=MUCU) 2+ /LPF NONE SEEN COMPREHENSIVE METABOLIC [id number] 11:16:00 Test Item Value Reference Range Comments SODIUM (test code=NA) 141 mEq/L 134-147 POTASSIUM (test code=K) 4.4 mEq/L 3.4-5.0 CHLORIDE (test code=CL) 111 mEq/L 100-108 CARBON DIOXIDE (test code=CO2) 26 mEq/L 21-33 ANION GAP (test code=GAP) 8 0-20 GLUCOSE (test code=GLU) 91 mg/dL 70-110 BLOOD UREA NITROGEN (test 13 mg/dL 7-18 code=BUN) GLOMERULAR FILTRATION RATE 111.3 105-110 Units of (test code=GFR) measure=ml/min/1.73 m2 CREATININE (test code=CREAT) 0.8 mg/dL 0.6-1.3 TOTAL PROTEIN (test code=PROT) 7.3 g/dL 6.4-8.2 ALBUMIN (test code=ALB) 4.10 g/dL 3.4-5.0 CALCIUM (test code=CA) 9.1 mg/dL 8.0-10.5 BILIRUBIN TOTAL (test 0.60 mg/dL 0.0-1.0 code=BILT) SGOT/AST (test code=AST) 18 IUnit/L 15-37 SGPT/ALT (test code=ALT) 40 IUnit/L 15-65 ALKALINE PHOSPHATASE TOTAL 51 IUnit/L 20-125 (test code=ALKP) [id number] 11:16:00 Test Item Value Reference Range Comments LIPASE (test code=LIP) 53 IUnit/L 73-393 CBC W/AUTO [id number] 11:00:00 Test Item Value Reference Range Comments WHITE BLOOD CELL (test code=WBC) 8.79 x10 3/uL 4.5-11.0 RED BLOOD CELL (test code=RBC) 4.59 x10 6/uL 4.00-5.60 HEMOGLOBIN (test code=HGB) 15.0 g/dL 12.5-16.9 HEMATOCRIT (test code=HCT) 44.9 % 37.5-50.7 MEAN CELL VOLUME (test code=MCV) 97.8 fL 81.0-99.0 MEAN CELL HGB (test code=MCH) 32.7 pg 27.0-33.0 MEAN CELL HGB CONCETRATION (test code=MCHC) 33.4 g/dL 33.0-37.0 RED CELL DISTRIBUTION WIDTH CV (test code=RDW) 12.2 % 11.5-14.5 RED CELL DISTRIBUTION WIDTH SD (test 44.3 fL 37.0-54.0 code=RDW-SD) PLATELET COUNT (test code=PLT) 314 x10 3/uL 150-400 MEAN PLATELET VOLUME (test code=MPV) 9.5 fL 7.0-9.0 NEUTROPHIL % (test code=NT%) 67.3 % 56.0-77.0 IMMATURE GRANULOCYTE % (test code=IG%) 0.3 % 0.0-2.0 LYMPHOCYTE % (test code=LY%) 24.8 % 14.0-32.0 MONOCYTE % (test code=MO%) 6.1 % 4.8-9.0 EOSINOPHIL % (test code=EO%) 1.0 % 0.3-3.7 BASOPHIL % (test code=BA%) 0.5 % 0.0-2.0 NUCLEATED RBC % (test code=NRBC%) 0.0 % 0-0 NEUTROPHIL # (test code=NT#) 5.91 x10 3/uL 2.0-7.6 IMMATURE GRANULOCYTE # (test code=IG#) 0.03 x10 3/uL 0.00-0.03 LYMPHOCYTE # (test code=LY#) 2.18 x10 3/uL 1.0-3.8 MONOCYTE # (test code=MO#) 0.54 x10 3/uL 0.1-0.8 EOSINOPHIL # (test code=EO#) 0.09 x10 3/uL 0.0-0.2 BASOPHIL # (test code=BA#) 0.04 x10 3/uL 0.0-0.2 NUCLEATED RBC # (test code=NRBC#) 0.00 x10 3/uL 0.0-0.1 MANUAL DIFF REQUIRED (test code=MDIFF) NO
[2019-05-08 00:05] LABS: Absolute Lymphocytes (CBC) 1.2 K/uL (0.7-4.9); Basophils % 0.4 % (0-1.3); Hematocrit 44.8 % (39.6-49.0); Lymphocytes % 9.2 % (15.3-44.8); RBC Red Blood Cell Count 4.62 M/uL (4.33-5.43)
[2019-05-08] MEDS ORDERED: MORPHINE 4 MG/ML SYR ONE (00:07)
[2019-05-08] MEDS ORDERED: ONDANSETRON 4 MG/2 ML VIAL ONE (00:07)
[2019-05-08] MEDS ORDERED: NA CHLORIDE 0.9% 1,000 ML ONE (00:07)
[2019-05-08 00:32] LABS: Albumin 4.5 g/dL (3.4-5.0); Bilirubin Direct 0.2 mg/dL (0-0.2); Potassium 3.6 mmol/L (3.5-5.1); Protein, Total 8.5 g/dL (6.4-8.2)
[2019-05-08] MEDS ORDERED: HYDROMORPHONE HCL 1 MG/ML INJ ONE ×3 (00:47→03:28)
[2019-05-08] MEDS ORDERED: FENTANYL CITR 100 MCG/2 ML ONE (02:24)
[2019-05-08 02:44] LABS: Urine Blood TRACE (NEG); Urine Glucose NEGATIVE (NEG); Urine Protein NEGATIVE (NEG)
[2019-05-08] MEDS ORDERED: CEFTRIAXONE/SWI 1gm 1 GM/10 ML SYR ONE (02:45)
--- NOTE | 2019-05-08 02:53 | ER ---
Nurse's Notes [facility] Name: Erwin Hernandez Age: 34 yrs Sex: Male : 1985 Arrival Date: 05/07/2019 Time: 23:14 Bed 19 Private MD: Diagnosis: Calculus of kidney with calculus of ureter;Intractable Pain Presentation: 05/07 23:15 Presenting complaint: EMS states: we were called out for a patient complaining of left rr5 flank pain radiates to groin and testicles. started this morning and became worse. known case of kidney stone. patient had a left kidney stent before. Transition of care: patient was not received from another setting of care. Onset of symptoms was May 07, 2019. Risk Assessment: Do you want to hurt yourself or someone else? Patient reports no desire to harm self or others. Initial Sepsis Screen: Does the patient meet any 2 criteria? No. Patient's initial sepsis screen is negative. Does the patient have a suspected source of infection? No. Patient's initial sepsis screen is negative. Care prior to arrival: Medication(s) given: Tylenol, 1 gram IV zofran fentanyl 50mcg/IV. 23:15 Method Of Arrival: EMS: [facility] rr5 23:15 Acuity: EVELYNE 3 rr5 Triage Assessment: 23:15 General: Appears in no apparent distress. comfortable, Behavior is calm, cooperative, rr5 appropriate for age. Historical: - Allergies: 05/08 01:14 No Known Allergies; rr5 - Home Meds: 01:14 amlodipine oral [Active]; Hydrocodone-Acetaminophen Oral [Active]; rr5 - PMHx: 05/07 23:20 Hypertension; Kidney stones; rr5 - PSHx: 23:20 Kidney stents; rr5 - Immunization history:: Adult Immunizations up to date. - Social history:: Smoking status: Patient uses tobacco products, smokes one pack cigarettes per day. Patient uses alcohol, but reports only rare drinking. street drugs, marijuana. - Ebola Screening: : Patient negative for fever greater than or equal to 101.5 degrees Fahrenheit, and additional compatible Ebola Virus Disease symptoms Patient denies exposure to infectious person Patient denies travel to an Ebola-affected area in the 21 days before illness onset. Screenin/30 00:23 Abuse screen: Denies threats or abuse. Denies injuries from another. Nutritional rr5 screening: No deficits noted. Tuberculosis screening: No symptoms or risk factors identified. Fall Risk IV access (20 points). Total Apple Fall Scale indicates No Risk (0-24 pts). Assessment: 05/07 23:15 General: Appears in no apparent distress. comfortable, Behavior is calm, cooperative, rr5 appropriate for age. Pain: Complains of pain in left flank Pain radiates to groin Pain currently is 1 out of 10 on a pain scale. Quality of pain is described as aching, Pain began gradually, Is intermittent. Neuro: Level of Consciousness is awake, alert, obeys commands, Oriented to person, place, time, situation, Appropriate for age. Cardiovascular: Capillary refill < 3 seconds Patient's skin is warm and dry. Respiratory: Airway is patent Respiratory effort is even, unlabored, Respiratory pattern is regular, symmetrical. GI: No signs and/or symptoms were reported involving the gastrointestinal system. : Reports pain in left flank(s), scrotum, Pain is 1 out of 10 on a pain scale. EENT: No signs and/or symptoms were reported regarding the EENT system. Derm: Skin is intact, is healthy with good turgor, Skin temperature is warm. Musculoskeletal: Circulation, motion, and sensation intact. Capillary refill < 3 seconds. 05/08 00:00 Reassessment: patient wants to hold the pain medication for now. his pain score is 1/10.rr5 00:18 Reassessment: complaining of sudden pain left flank pain, facial grimace, pain score rr5 10/10. 00:48 Reassessment: Patient appears in no apparent distress at this time. as verbalized by rr5 the patient he feels relieved, just finding the right position for him. Patient states symptoms have not improved. 01:40 Reassessment: Patient appears in no apparent distress at this time. complaining of rr5 severe left flank pain. ED provider aware with order made and carried out. Patient states symptoms have not improved. 02:30 Reassessment: Patient appears in no apparent distress at this time. complaints of left rr5 flank pain. ED provider aware with order made and carried out. 02:45 Reassessment: patient verbalized he feels relieved for few minutes after the pain rr5 medication given. 03:00 Reassessment: ED provider explained to patient the result of CT scan and order for the rr5 transfer to other facility. patient agreed for the plan of care. 03:21 Reassessment: darshan from [facility] informed and accepted the case. rr5 03:35 Reassessment: Patient appears in no apparent distress at this time. does not want to rr5 received another pain medication he wants to wait for the EMS to arrive first. Patient states symptoms have not improved. 04:00 Reassessment: Patient appears in no apparent distress at this time. awaiting for EMS rr5 transport. patient verbalized i can wait for the EMS to arrive before I will get the pain medication. 04:50 Reassessment: Patient appears in no apparent distress at this time. report given to [facility] [place]. awake alert, breathing spontaneously at room air. Dilaudid given prior to transfer. Vital Signs: 05/07 23:15 BP 154 / 104; Pulse 114; Resp 19; Temp 98.3; Pulse Ox 99% ; Weight 83.91 kg; Height 6 rr5 ft. 0 in. (182.88 cm); Pain 1/10; 05/08 00:00 BP 132 / 85; Pulse 110; Resp 18; Pulse Ox 99% ; Pain 1/10; rr5 00:18 BP 150 / 99; Pulse 116; Resp 22; Pulse Ox 100% ; Pain 10/10; rr5 01:15 BP 165 / 80; Pulse 116; Resp 18; Temp 98.3; Pulse Ox 98% ; Pain 10/10; rr5 02:30 BP 131 / 111; Pulse 121; Resp 24; Pulse Ox 99% ; rr5 03:31 BP 179 / 97; Pulse 110; Resp 20; Temp 98.2; Pulse Ox 99% on R/A; rr5 04:30 BP 161 / 75; Pulse 105; Resp 19; Temp 98.5; Pulse Ox 99% ; rr5 05/07 23:15 Body Mass Index 25.09 (83.91 kg, 182.88 cm) rr5 ED Course: 05/07 23:14 Patient arrived in ED. rr5 23:15 Maintain EMS IV. Dressing intact. Good blood return noted. Site clean \T\ dry. Gauge \T\ rr 5 site: G20 right AC. 23:18 Triage completed. rr5 23:21 Arm band placed on. rr5 23:22 [facility] jmm 23:22 Damir Mora MD is Attending Physician. jmm 23:45 Initial lab(s) drawn, by me, sent to lab. Inserted PT has a IV in the right AC. IV was lt1 placed by EMS. 05/08 00:00 Hiren Armendariz, RN is Primary Nurse. rr5 00:00 Patient has correct armband on for positive identification. Placed in gown. Bed in low rr5 position. Call light in reach. Side rails up X2. Pulse ox on. NIBP on. 00:48 Radiology exam delayed due to Patient experiencing too much pain to complete CT exam. kw1 Spoke with AYUSH Vann who is going to order additional pain medication. 04:50 No provider procedures requiring assistance completed. Patient transferred, IV remains rr5 in place. intact, No redness/swelling at site. 05:07 CT Stone Protocol In Process Unspecified. EDMS Administered Medications: 00:00 Drug: NS 0.9% 1000 ml Route: IV; Rate: 1 bolus; Site: right antecubital; rr5 02:00 Follow up: Response: No adverse reaction; IV Status: Completed infusion; IV Intake: rr5 1000ml 00:20 Drug: Zofran 4 mg Route: IVP; Site: right antecubital; rr5 01:20 Follow up: Response: No adverse reaction rr5 00:21 Drug: morphine 4 mg {Note: rass 0.} Route: IVP; Site: right antecubital; rr5 01:20 Follow up: Response: No adverse reaction; Pain is unchanged, physician notified; RASS: rr5 Alert and Calm (0) 00:48 Drug: Dilaudid 1 mg {Note: RASS score 1 patient is restless.} Route: IVP; Site: right aj1 antecubital; 01:15 Follow up: Response: No adverse reaction; Pain is decreased; RASS: Alert and Calm (0) rr5 01:49 Drug: Dilaudid 1 mg {Note: rass 0.} Route: IVP; Site: right antecubital; rr5 02:30 Follow up: Response: No adverse reaction; Pain is decreased; RASS: Alert and Calm (0) rr5 02:35 Drug: fentaNYL (PF) 50 mcg {Note: rass 0.} Route: IVP; Site: right antecubital; rr5 03:35 Follow up: Response: No adverse reaction; Pain is unchanged, physician notified; RASS: rr5 Alert and Calm (0) 02:51 Drug: Rocephin - (cefTRIAXone) 1 grams Route: IVPB; Infused Over: 30 mins; Site: right rr5 antecubital; 03:50 Follow up: Response: No adverse reaction; IV Status: Completed infusion; IV Intake: [id number] 04:35 Drug: Dilaudid 1 mg {Note: rass0 .} Route: IVP; Site: right antecubital; rr5 04:35 Follow up: Response: Other; medication administered at transfer rr5 Intake: 02:00 IV: 1000ml; Total: 1000ml. rr5 03:50 IV: 50ml; Total: 1050ml. rr5 Outcome: 02:53 ER care complete, transfer ordered by MD. cinthya 04:50 Transferred by ground EMS to other acute care facility: [facility]. Transfer form rr5 completed. 04:50 Condition: stable 04:50 Instructed on the need for transfer. 04:51 Patient left the ED. rr5 Signatures: Dispatcher [employer] Dorys Andrew RN RN [email or web address] Niranjan Dao PA PA jmm Wilhelm, Kimberly kw1 Hiren Armendariz RN RN rr5 Nancie Barnes 1 Corrections: (The following items were deleted from the chart) 00:23 00:23 Fall Risk IV access (20 points). Total Apple Fall Scale indicates rr5 rr5 01:05/07 23:20 Allergies: No Known Allergies; rr5 rr5 05/08 01:05/07 23:20 Home Meds: Lisinopril Oral; rr5 rr5
--- NOTE | 2019-05-08 02:54 | EDPHYS ---
Physician Documentation [facility] Name: Erwin Hernandez Age: 34 yrs Sex: Male : 1985 Arrival Date: 05/07/2019 Time: 23:14 Bed 19 Private MD: ED Physician Damir Mora HPI: 05/07 23:30 This 34 yrs old Male presents to ER via EMS with complaints of Flank Pain. jmm 23:30 The patient complains of pain in the left flank. Onset: The symptoms/episode jmm began/occurred acutely, just prior to arrival. Modifying factors: The symptoms are alleviated by nothing. the symptoms are aggravated by nothing. Associated signs and symptoms: Pertinent positives: nausea, vomiting. This is a 34 year old male with a history of htn, nephrolithiasis that presents to the ED with complaints of left flank pain beginning earlier this evening. Patient recently had stent on March 12 and removed April 01 of this year. . Historical: - Allergies: 05/08 01:14 No Known Allergies; rr5 - Home Meds: 01:14 amlodipine oral [Active]; Hydrocodone-Acetaminophen Oral [Active]; rr5 - PMHx: 05/07 23:20 Hypertension; Kidney stones; rr5 - PSHx: 23:20 Kidney stents; rr5 - Immunization history:: Adult Immunizations up to date. - Social history:: Smoking status: Patient uses tobacco products, smokes one pack cigarettes per day. Patient uses alcohol, but reports only rare drinking. street drugs, marijuana. - Ebola Screening: : Patient negative for fever greater than or equal to 101.5 degrees Fahrenheit, and additional compatible Ebola Virus Disease symptoms Patient denies exposure to infectious person Patient denies travel to an Ebola-affected area in the 21 days before illness onset. ROS: 05/08 02:12 Constitutional: Negative for fever, chills, and weight loss, Cardiovascular: Negative jmm for chest pain, palpitations, and edema, Respiratory: Negative for shortness of breath, cough, wheezing, and pleuritic chest pain. Back: Positive for flank pain. All other systems are negative. Exam: 02:12 Constitutional: This is a well developed, well nourished patient who is awake, alert, jmm and in no acute distress. Head/Face: atraumatic. Eyes: EOMI, no conjunctival erythema appreciated ENT: Moist Mucus Membranes Neck: Trachea midline, Supple Chest/axilla: Normal chest wall appearance and motion. Cardiovascular: Regular rate and rhythm. No edema appreciated Respiratory: Normal respirations, no respiratory distress appreciated 02:12 Skin: General appearance color normal MS/ Extremity: Moves all extremities, no obvious deformities appreciated, no edema noted to the lower extremities Neuro: Awake and alert, normal gait Psych: Behavior is normal, Mood is normal, Patient is cooperative and pleasant 02:12 Abdomen/GI: Inspection: abdomen appears normal, Bowel sounds: normal. 02:12 Back: CVA tenderness, that is moderate, is noted on the left. 02:12 Musculoskeletal/extremity: ROM: intact in all extremities. Vital Signs: 05/07 23:15 BP 154 / 104; Pulse 114; Resp 19; Temp 98.3; Pulse Ox 99% ; Weight 83.91 kg; Height 6 rr5 ft. 0 in. (182.88 cm); Pain 1/10; 05/08 00:00 BP 132 / 85; Pulse 110; Resp 18; Pulse Ox 99% ; Pain 1/10; rr5 00:18 BP 150 / 99; Pulse 116; Resp 22; Pulse Ox 100% ; Pain 10/10; rr5 01:15 BP 165 / 80; Pulse 116; Resp 18; Temp 98.3; Pulse Ox 98% ; Pain 10/10; rr5 02:30 BP 131 / 111; Pulse 121; Resp 24; Pulse Ox 99% ; rr5 03:31 BP 179 / 97; Pulse 110; Resp 20; Temp 98.2; Pulse Ox 99% on R/A; rr5 04:30 BP 161 / 75; Pulse 105; Resp 19; Temp 98.5; Pulse Ox 99% ; rr5 05/07 23:15 Body Mass Index 25.09 (83.91 kg, 182.88 cm) rr5 MDM: 05/07 23:30 Patient medically screened. [facility] 05/08 02:51 Data reviewed: vital signs, nurses notes. Counseling: I had a detailed discussion with cinthya the patient and/or guardian regarding: the historical points, exam findings, and any diagnostic results supporting the discharge/admit diagnosis, lab results, radiology results, the need to transfer to another facility. ED course: Transferred due to intractable pain and continuity of care. Patient was accepted at [facility]. Accepting physician Dr. Gilliland. . 05/07 23:23 Order name: Basic Metabolic Panel [facility] 05/07 23:23 Order name: CBC with Diff [facility] 05/07 23:23 Order name: Creatinine for Radiology [facility] 05/07 23:23 Order name: Hepatic Function [facility] 05/07 23:23 Order name: Lipase [facility] 05/08 00:12 Order name: CBC with Automated Diff; Complete Time: 00:29 EDNC 05/07 23:23 Order name: CT Stone Protocol [facility] 05/08 00:17 Order name: Urine Dipstick--Ancillary (enter results) [facility] 05/08 00:28 Order name: Creatinine (Radiology Only); Complete Time: 00:29 EDNC 05/08 00:32 Order name: Basic Metabolic Panel; Complete Time: 00:36 EDMS 05/08 00:32 Order name: Liver (Hepatic) Function; Complete Time: 00:36 EDNC 05/08 00:32 Order name: Lipase; Complete Time: 00:36 EDNC 05/08 02:44 Order name: Urine Dipstick-Ancillary; Complete Time: 03:05 [facility] 05/07 23:23 Order name: IV Saline Lock; Complete Time: 23:47 [facility] 05/07 23:23 Order name: Labs collected and sent; Complete Time: 23:47 [facility] Administered Medications: 00:00 Drug: NS 0.9% 1000 ml Route: IV; Rate: 1 bolus; Site: right antecubital; rr5 02:00 Follow up: Response: No adverse reaction; IV Status: Completed infusion; IV Intake: rr5 1000ml 00:20 Drug: Zofran 4 mg Route: IVP; Site: right antecubital; rr5 01:20 Follow up: Response: No adverse reaction rr5 00:21 Drug: morphine 4 mg {Note: rass 0.} Route: IVP; Site: right antecubital; rr5 01:20 Follow up: Response: No adverse reaction; Pain is unchanged, physician notified; RASS: rr5 Alert and Calm (0) 00:48 Drug: Dilaudid 1 mg {Note: RASS score 1 patient is restless.} Route: IVP; Site: right aj1 antecubital; 01:15 Follow up: Response: No adverse reaction; Pain is decreased; RASS: Alert and Calm (0) rr5 01:49 Drug: Dilaudid 1 mg {Note: rass 0.} Route: IVP; Site: right antecubital; rr5 02:30 Follow up: Response: No adverse reaction; Pain is decreased; RASS: Alert and Calm (0) rr5 02:35 Drug: fentaNYL (PF) 50 mcg {Note: rass 0.} Route: IVP; Site: right antecubital; rr5 03:35 Follow up: Response: No adverse reaction; Pain is unchanged, physician notified; RASS: rr5 Alert and Calm (0) 02:51 Drug: Rocephin - (cefTRIAXone) 1 grams Route: IVPB; Infused Over: 30 mins; Site: right rr5 antecubital; 03:50 Follow up: Response: No adverse reaction; IV Status: Completed infusion; IV Intake: [id number] 04:35 Drug: Dilaudid 1 mg {Note: rass0 .} Route: IVP; Site: right antecubital; rr5 04:35 Follow up: Response: Other; medication administered at transfer rr5 Disposition: 05/08/19 02:53 Transfer ordered to Other Acute Care Facility. Diagnosis are Calculus of kidney with calculus of ureter, Intractable Pain. - Reason for transfer: Higher level of care. - Accepting physician is Darshana. - Condition is Stable. - Problem is an acute exacerbation. - Symptoms are unchanged. Addendum: 05/10/2019 10:31 Co-signature as Attending Physician, Damir Mora MD I agree with the assessment and c mejia plan of care. Signatures: Dispatcher [employer] Dorys Andrew RN RN aj1 Damir Mora MD MD cha Mickail, Joel, PA PA jmm Roque, Raymond, RN RN rr5 Corrections: (The following items were deleted from the chart) 05/08 01:14 05/07 23:20 Allergies: No Known Allergies; rr5 rr5 05/08 01:14 05/07 23:20 Home Meds: Lisinopril Oral; rr5 rr5 05/08 04:51 02:53 05/08/2019 02:53 Transfer ordered to Other Acute Care Facility. Diagnosis is rr5 Calculus of kidney with calculus of ureter; Intractable Pain. Reason for transfer: Higher level of care. Accepting physician is Darshana. Condition is Stable. Problem is an acute exacerbation. Symptoms are unchanged. cinthya
[2019-05-08 10:16] VITALS: O2SAT 99
[2019-05-08 10:18] VITALS: BP 179/97; TEMP 98.2
--- NOTE | 2019-05-11 14:47 | RAD REPORT ---
EXAM DESCRIPTION: CT - Stone Protocol - 05/08/2019 4:46 am CLINICAL HISTORY: 34 years Male FLANK PAIN TECHNIQUE: Contiguous axial images obtained through the abdomen and pelvis without IV contrast. Co chucho and sagittal reformatted images provided. This CT exam was performed according to our departmental dose-optimization program, which includes on e or more of the following dose reduction techniques: automated exposure control, adjustment of the m A and/or kV according to patient size, and/or use of iterative reconstruction technique. COMPARISON: No prior exams provided for comparison. FINDINGS: There is moderate left hydronephrosis due to a 1 cm calculus at the left ureteropelvic gabby ction. There are a few punctate nonobstructing intrarenal calculi bilaterally. No other ureteral or b ladder calculus. No right-sided hydronephrosis. The lung bases, unenhanced liver, biliary tree, gallbladder, pancreas, spleen, adrenal glands, and ur inary bladder are normal. There is no bowel inflammation, obstruction, free intraperitoneal air, or ascites. The appendix is normal. There are no aggressive osseous lesions. IMPRESSION: Moderate left hydronephrosis due to a 1 cm calculus at the left ureteropelvic junction. Nonobstructing intrarenal calculi bilaterally. 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 The interpreting radiologist is f ully responsible for the content of the report.
== END 2019-05-08 04:51 ==
LOC: ER 23:09
DX: N20.2 Calculus of kidney with calculus of ureter (principal); F17.210 Nicotine dependence, cigarettes, uncomplicated; I10 Essential (primary) hypertension; Z87.442 Personal history of urinary calculi
CPT/HCPCS: 36415; 74176; 76377; 80048; 80076; 81003; 83690; 85025; 96361; 96365; 96375; 99285; J0696; J1170; J2405; J3010; J7030

== ENCOUNTER 2019-05-25 02:06 | Emergency (ER) | payer SELFPAY ==
[2019-05-25] MEDS ORDERED: FENTANYL CITR 100 MCG/2 ML ONE (02:11)
[2019-05-25] MEDS ORDERED: NA CHLORIDE 0.9% 1,000 ML ONE (02:11)
[2019-05-25] MEDS ORDERED: KETOROLAC 30 MG/ML INJ ONE (02:11)
--- OUTSIDE RECORDS SUMMARY | 2019-05-25 02:12 | XMS REPORT ---
:1985 Author Organization [facility] Address [address] [place] [address] Care Team Providers Name Role Phone Unavailable [...] Comments Text Results Atomic Results Result Comments - [employer] 2019-05-24 11:30:00 Name: MARK SALMERON [facility] : 1985 Age/S: 34 / M [address] [place] [address] Unit #: [id number] Loc: [place] [address] Phys: Angelic Friend [employer] Acct: [id number] Dis Date: Status: REG ER PHONE #: [phone] Exam Date: 05/24/2019 1122 FAX #: [phone] Reason: kidney stones EXAMS: CPT CODE: [id number] [employer] [address] PROCEDURE: RENAL ULTRASOUND INDICATION: Left ureteral stent placed one week ago for renal stones. Left flank pain. COMPARISON: 05/10/2019 CT abdomen pelvis and today's KUB. TECHNIQUE: Sonographic evaluation of the kidneys and urinary bladder was performed. FINDINGS: KIDNEYS: The right kidney measures 10.6 cm in length. Normal contour and parenchymal echogenicity. There is no hydronephrosis, nephrolithiasis, mass lesion or perinephric collection. The left kidney measures 10.9 cm in length. Normal contour and parenchymal echogenicity. There is no hydronephrosis, nephrolithiasis, mass lesion or perinephric collection. BLADDER: Normal. IMPRESSION: Normal renal ultrasound. The left renal stones noted on today's KUB are not appreciated on ultrasound. END REPORT [id number] at 1130 Reported and signed by: Denis De Jesus M.D. CC: Angelic Friend NP; Armando Mares MD Technologist: Peggy Bryant RDMS(Leonor)(OB) Trnmtb Date/Time: 05/24/2019 (9210) t.SDR.RTB Orig Print D/T: S: 05/24/2019 (3092) Probe: PAGE 1 Signed Report - XR ABDOMEN 1V (KUB) 2019-05-24 11:24:00 FAX: Angelic Friend NP [phone] [place]: St: REG FAX: Armando Simons MD [phone] - Name: MARK SALMERON [facility] : 1985 Age/S: 34/M [address] [place] [address] Unit #: [id number] Loc: [place] [address] Phys: Angelic Friend NP Acct: [id number] Dis Date: Status: REG ER PHONE #: [phone] Exam Date: 05/24/2019 1117 FAX #: [phone] Reason: kidney stones EXAMS: CPT CODE: [id number] XR ABDOMEN 1V (KUB) 34841 1 VIEW ABDOMEN INDICATION: Left flank pain. Patient had left ureteral stent placed one week ago for kidney stone. COMPARISON: 05/09/2019 KUB. Left ureteral stent appears well-positioned. 2 stones project over the left kidney one is 9 to 10 mm the other approximately 3 mm. I do not identify a stone along the course of the left ureteral stent. Soft tissues otherwise normal. Bones and bowel gas pattern normal. Lung bases clear. IMPRESSION: Left ureteral stent appears well-positioned. 2 left renal stones present. END IMPRESSION [id number] at 1124 Reported and signed by: Denis De Jesus M.D. CC: Angelic Friend NP; Armando Mares MD Technologist: RT Elana(R) Trnscrd Date/Time/By: 05/24/2019 (1124) : By: Jo AnnRTSubha Orig Print D/T: S: 05/24/2019 (1127) PAGE 1 Signed Report UA RFLX MICR CULT IF INDICATED 2019-05-24 11:10:00 Test Item Value Reference Range Comments UA [...] NEGATIVE UA LEUKOCYTE ESTERASE DIPSTICK (test code=LEUU) 3+ NEGATIVE UA WBC (test code=WBCU) 21-50 WBC/HPF 0-3 UA RBC (test code=RBCU) >50 RBC/HPF 0-3 UA WBC NO REFLEX (test code=WBCUCL) 21-50 WBC/HPF 0-3 UA BACTERIA (test code=BACU) NONE SEEN /HPF NONE SEEN UA SQUAMOUS CELLS (test code=SQU) NONE SEEN /HPF NONE SEEN UA MUCUS (test code=MUCU) TRACE /LPF NONE SEEN Indication for culture: Suprapubic PainSpecimen Description: CLEAN CATCHCBC W/AUTO [id number] 11:04:00 Test Item Value Reference Range Comments WHITE BLOOD CELL (test code=WBC) 6.62 x10 3/uL 4.5-11.0 RED BLOOD CELL (test code=RBC) 4.08 x10 6/uL 4.00-5.60 HEMOGLOBIN (test code=HGB) 13.6 g/dL 12.5-16.9 HEMATOCRIT (test code=HCT) 40.4 % 37.5-50.7 MEAN CELL VOLUME (test code=MCV) 99.0 fL 81.0-99.0 MEAN CELL HGB (test code=MCH) 33.3 pg 27.0-33.0 MEAN CELL HGB CONCETRATION (test code=MCHC) 33.7 g/dL 33.0-37.0 RED CELL DISTRIBUTION WIDTH CV (test code=RDW) 12.7 % 11.5-14.5 RED CELL DISTRIBUTION WIDTH SD (test 46.5 fL 37.0-54.0 code=RDW-SD) PLATELET COUNT (test code=PLT) 492 x10 3/uL 150-400 MEAN PLATELET VOLUME (test code=MPV) 8.7 fL 7.0-9.0 NEUTROPHIL % (test code=NT%) 60.7 % 56.0-77.0 IMMATURE GRANULOCYTE % (test code=IG%) 0.3 % 0.0-2.0 LYMPHOCYTE % (test code=LY%) 29.0 % 14.0-32.0 MONOCYTE % (test code=MO%) 6.2 % 4.8-9.0 EOSINOPHIL % (test code=EO%) 3.0 % 0.3-3.7 BASOPHIL % (test code=BA%) 0.8 % 0.0-2.0 NUCLEATED RBC % (test code=NRBC%) 0.0 % 0-0 NEUTROPHIL # (test code=NT#) 4.02 x10 3/uL 2.0-7.6 IMMATURE GRANULOCYTE # (test code=IG#) 0.02 x10 3/uL 0.00-0.03 LYMPHOCYTE # (test code=LY#) 1.92 x10 3/uL 1.0-3.8 MONOCYTE # (test code=MO#) 0.41 x10 3/uL 0.1-0.8 EOSINOPHIL # (test code=EO#) 0.20 x10 3/uL 0.0-0.2 BASOPHIL # (test code=BA#) 0.05 x10 3/uL 0.0-0.2 NUCLEATED RBC # (test code=NRBC#) 0.00 x10 3/uL 0.0-0.1 MANUAL DIFF REQUIRED (test code=MDIFF) NO CHEMISTRY 8 [id number] 10:37:00 Test Item Value Reference Range Comments ISTAT-SODIUM (test code=NAP) MMOL/L 134-147 ISTAT-POTASSIUM (test code=KP) MMOL/L 3.4-5.0 ISTAT-CHLORIDE (test code=CLP) MMOL/L 100-108 ISTAT CARBON DIOXIDE (test code=ISTAT-CO2) mmol/L 21-33 ISTAT CALCIUM IONIZED (test code=ISTAT-SANDY) MG/DL 1.12-1.32 ISTAT-GLUCOSE (test code=GLUP) MG/DL 70-110 ISTAT-BUN (test code=BUNP) MG/DL 7-18 BEDSIDE CREATININE (test code=CREATBED) MG/DL 0.6-1.3 GLOMERULAR FILTRATION RATE POC (test code=GFRBED) 137 ML/MIN CHEMISTRY 8 [id number] 10:37:00 Test Item Value Reference Range Comments ISTAT-SODIUM (test code=NAP) 141 MMOL/L 134-147 ISTAT-POTASSIUM (test 4.4 MMOL/L 3.4-5.0 code=KP) ISTAT-CHLORIDE (test 105 MMOL/L 100-108 Performed by certified code=CLP) 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 [facility] ISTAT CARBON DIOXIDE (test 24.0 mmol/L 21-33 code=ISTAT-CO2) ISTAT CALCIUM IONIZED (test 1.24 MG/DL 1.12-1.32 code=ISTAT-SANDY) ISTAT-GLUCOSE (test 98 MG/DL 70-110 code=GLUP) ISTAT-BUN (test code=BUNP) 18 MG/DL 7-18 BEDSIDE CREATININE (test 0.7 MG/DL 0.6-1.3 code=CREATBED) GLOMERULAR FILTRATION RATE 137 ML/MIN POC (test code=GFRBED) CBC W/AUTO [id number] 08:08:00 Test Item Value Reference Range Comments WHITE BLOOD CELL (test code=WBC) 8.50 x10 3/uL 4.5-11.0 RED BLOOD CELL (test code=RBC) 3.59 x10 6/uL 4.00-5.60 HEMOGLOBIN (test code=HGB) 12.0 g/dL 12.5-16.9 HEMATOCRIT (test code=HCT) 35.6 % 37.5-50.7 MEAN CELL VOLUME (test code=MCV) 99.2 fL 81.0-99.0 MEAN CELL HGB (test code=MCH) 33.4 pg 27.0-33.0 MEAN CELL HGB CONCETRATION (test code=MCHC) 33.7 g/dL 33.0-37.0 RED CELL DISTRIBUTION WIDTH CV (test code=RDW) 12.3 % 11.5-14.5 RED CELL DISTRIBUTION WIDTH SD (test 45.5 fL 37.0-54.0 code=RDW-SD) PLATELET COUNT (test code=PLT) 360 x10 3/uL 150-400 MEAN PLATELET VOLUME (test code=MPV) 10.0 fL 7.0-9.0 NEUTROPHIL % (test code=NT%) 63.7 % 56.0-77.0 IMMATURE GRANULOCYTE % (test code=IG%) 0.6 % 0.0-2.0 LYMPHOCYTE % (test code=LY%) 22.6 % 14.0-32.0 MONOCYTE % (test code=MO%) 9.3 % 4.8-9.0 EOSINOPHIL % (test code=EO%) 3.2 % 0.3-3.7 BASOPHIL % (test code=BA%) 0.6 % 0.0-2.0 NUCLEATED RBC % (test code=NRBC%) 0.0 % 0-0 NEUTROPHIL # (test code=NT#) 5.42 x10 3/uL 2.0-7.6 IMMATURE GRANULOCYTE # (test code=IG#) 0.05 x10 3/uL 0.00-0.03 LYMPHOCYTE # (test code=LY#) 1.92 x10 3/uL 1.0-3.8 MONOCYTE # (test code=MO#) 0.79 x10 3/uL 0.1-0.8 EOSINOPHIL # (test code=EO#) 0.27 x10 3/uL 0.0-0.2 BASOPHIL # (test code=BA#) 0.05 x10 3/uL 0.0-0.2 NUCLEATED RBC # (test code=NRBC#) 0.00 x10 3/uL 0.0-0.1 MANUAL DIFF REQUIRED (test code=MDIFF) NO BASIC METABOLIC [id number] 07:22:00 Test Item Value Reference Range Comments SODIUM (test code=NA) 140 mEq/L 134-147 POTASSIUM (test code=K) 3.9 mEq/L 3.4-5.0 CHLORIDE (test code=CL) 108 mEq/L 100-108 CARBON DIOXIDE (test code=CO2) 26 mEq/L 21-33 ANION GAP (test code=GAP) 10 0-20 GLUCOSE (test code=GLU) 94 mg/dL 70-110 BLOOD UREA NITROGEN (test 14 mg/dL 7-18 code=BUN) GLOMERULAR FILTRATION RATE 129.1 105-110 Units of measure=ml/min/1.73 (test code=GFR) m2 CREATININE (test code=CREAT) 0.7 mg/dL 0.6-1.3 CALCIUM (test code=CA) 9.0 mg/dL 8.0-10.5 - XR CHEST 1 [id number] 16:33:00 [place]: St: ADM Name: MARK SALMERON [facility] : 1985 Age/S: 34/M [address] [place] [address] Unit#: [id number] Loc: [address] [address] Phys: Denis Mo MD Acct: [id number] Dis Date: Status: ADM IN PHONE #: [phone] Exam Date: 05/11/2019 1612 FAX #: [phone] Reason: SOB EXAMS: CPT CODE: [id number] XR CHEST 1 V 05262 Clinical Indication : Shortness of breath. Comparison: 10/17/2015. Impression: Chest, single view. Lungs are clear. No consolidation,pleural effusion, or pneumothorax. Cardiomediastinal silhouette is unremarkable. No acute osseous abnormality. SL: [id number] at 1633 Reported and signed by: Tricia Shelby M.D. CC: Technologist: RT Angelica(Palak) Trnscrd Date/Time/By: 05/11/2019 (892) : By: Jo AnnKM28 Orig Print D/T: S: 08/2018 (5752) PAGE 1 Signed Report- CT ABD PELVIS W/O [id number] 22:54:00 Name: MARK SALMERON [facility] : 1985 Age/S: 34 / M [address] [place] [address] Unit #: [id number] Loc: [place] Phys: Simon Ramirez MD Acct: [id number] Dis Date: Status: ADM IN PHONE #: [phone] Exam Date: 07/2018 FAX #: [phone] Reason: intractable pain s/p stent EXAMS: CPTCODE: [id number] CT ABD PELVIS W/O CONT 98747 PROCEDURE: CT ABDOMEN AND PELVIS WITHOUT CONTRAST ( RENAL STONE CT) INDICATION: intractable pain s/p stent 34-year- old male with history of left ureteral calculus post stent placement. COMPARISON: Intraprocedural fluoroscopic images of 05/09/2019, CT of 2018 and earlier examinations dating back July 2016 TECHNIQUE : Noncontrasted helical imaging was performed diaphragm through the symphysis as a renal stone protocol with multiplanar reconstructions. CT imaging performed at this location utilizes radiation dose optimization techniques which include one or more of the following: - Automated exposure control -Adjustment of the mA and/or kV according to patient size -Use of iterative reconstruction technique CT Radiation Dose DLP 373.20 mGy-cm LIMITATIONS: Evaluation of abdominal viscera and vascular structures may be limited by the lack of intravenous contrast, which is standard for urinary calculus assessment CT. Slight motion limited assessment at the level of lumbosacral junction and lower pelvis. FINDINGS: KIDNEYS: Left ureteral stent in place, proximal tip coiled in the collecting system and distal tip in the urinary bladder near the ureterovesical junction. Motion artifact limiting assessment of the distal ureter. Otherwise, no ureteral calculi demonstrated. Intrarenal collecting system calculi measuring 4 mm at the level of mid kidney and 9 mm in the lower pole. There is no hydronephrosis.Mild perinephric periureteral stranding without focal fluid collection. The renal contours are normal. Diminutive nonobstructing calcification lower pole right renal sinus 2 mm diameter. LOWER CHEST: Slight motion limited survey of the lung bases. There are a few indistinct opacities in the basilar right lower lobe new from prior exam. No consolidation. No pleural abnormality. There is a circumscribed water attenuation fluid collection within mediastinal fat at the level of right cardiophrenic angle approximately 2.6 x 1.7 cm, stable andcompatible with benign pericardial cyst. LIVER: Normal. BILIARY TREE: Nobiliary dilatation. PAGE 1 Signed Report (CONTINUED)Name: MARK SALMERON [facility] : 1985 Age/S: 34 / M [address] [place] [address] Unit #: [id number] Loc: [place] [address] Phys: Simon Ramirez MD Acct: [id number] Dis Date: Status : ADM IN PHONE #: [phone] Exam Date: 05/10/20191950 FAX #: [phone] Reason: intractable pain s/p stent EXAMS: CPT CODE: [id number] CT ABD PELVIS W/O CONT 99586 <Continued> GALLBLADDER: Normal. SPLEEN: Normal. PANCREAS: Normal. ADRENALS: Normal. BOWEL: The unopacified stomach and small bowel are unremarkable. Moderate volume of fecal material throughout the colon. Scattered colonic diverticula. No inflammatory changes. No CT evidence for appendicitis. PERITONEUM: Nofree intraperitoneal fluid or air. RETROPERITONEUM: No adenopathy. No retroperitonealfluid collection. Retroaortic left renal vein. The aorta is unremarkable. PELVIS: No pelvic mass. The partially distended urinary bladder contains small volume of gas compatible with recent instrumentation. MUSCULOSKELETAL: The skeleton is intact. IMPRESSION: 1. Left ureteral stent in place. Calcifications within the collecting system. No hydronephrosis. Mild residual perinephric periureteral stranding without fluid collection. 2. Nonobstructing right nephrolithiasis. 3. Indistinct opacities inthe right lower lobe compatible with mild airspace disease. Bronchopneumonia/pneumonitis inthe differential. Suggest short interval radiographic follow-up. SL: CHEO at 6160 Reported and signed by: Ignacio Colvin M.D. PAGE 2 Signed Report (CONTINUED) Name: MARK SALMERON [facility] : 1985 Age/S: 34 / M [address] [place] [address] Blvd Unit #: [id number] Loc: [place] [address] Phys: Simon Ramirez MD Acct: [id number] Dis Date: Status: ADM IN PHONE # : [phone] Exam Date: 05/10/20191950 FAX #: [phone] Reason: intractable pain s/p stent EXAMS: CPT CODE: [id number] CT ABD PELVIS W/O CONT 12322 <Continued> CC: Simon Ramirez MD Technologist:RT Amina(R)(CT) CTDI: DLP: Trnscb Date/Time: 05/10/2019 (2253) Dany Orig Print D/T: S: 05/10/2019 (2256) PAGE 3 Signed ReportBASIC METABOLIC [id number] 16:01:00 Test Item Value Reference Range Comments SODIUM (test code=NA) 141 mEq/L 134-147 POTASSIUM (test code=K) 3.6 mEq/L 3.4-5.0 CHLORIDE (test code=CL) 108 mEq/L 100-108 CARBON DIOXIDE (test code=CO2) 31 mEq/L 21-33 ANION GAP (test code=GAP) 6 0-20 GLUCOSE (test code=GLU) 111 mg/dL 70-110 BLOOD UREA NITROGEN (test 14 mg/dL 7-18 code=BUN) GLOMERULAR FILTRATION RATE 76.6 105-110 Units of measure=ml/min/1.73 (test code=GFR) m2 CREATININE (test code=CREAT) 1.1 mg/dL 0.6-1.3 CALCIUM (test code=CA) 8.0 mg/dL 8.0-10.5 CBC W/AUTO [id number] 15:43:00 Test Item Value Reference Range Comments WHITE BLOOD CELL (test code=WBC) 9.23 x10 3/uL 4.5-11.0 RED BLOOD CELL (test code=RBC) 3.01 x10 6/uL 4.00-5.60 HEMOGLOBIN (test code=HGB) 10.3 g/dL 12.5-16.9 HEMATOCRIT (test code=HCT) 30.2 % 37.5-50.7 MEAN CELL VOLUME (test code=MCV) 100.3 fL 81.0-99.0 MEAN CELL HGB (test code=MCH) 34.2 pg 27.0-33.0 MEAN CELL HGB CONCETRATION (test code=MCHC) 34.1 g/dL 33.0-37.0 RED CELL DISTRIBUTION WIDTH CV (test code=RDW) 13.0 % 11.5-14.5 RED CELL DISTRIBUTION WIDTH SD (test 48.0 fL 37.0-54.0 code=RDW-SD) PLATELET COUNT (test code=PLT) 214 x10 3/uL 150-400 MEAN PLATELET VOLUME (test code=MPV) 9.6 fL 7.0-9.0 NEUTROPHIL % (test code=NT%) 73.7 % 56.0-77.0 IMMATURE GRANULOCYTE % (test code=IG%) 0.3 % 0.0-2.0 LYMPHOCYTE % (test code=LY%) 16.3 % 14.0-32.0 MONOCYTE % (test code=MO%) 7.9 % 4.8-9.0 EOSINOPHIL % (test code=EO%) 1.4 % 0.3-3.7 BASOPHIL % (test code=BA%) 0.4 % 0.0-2.0 NUCLEATED RBC % (test code=NRBC%) 0.0 % 0-0 NEUTROPHIL # (test code=NT#) 6.80 x10 3/uL 2.0-7.6 IMMATURE GRANULOCYTE # (test code=IG#) 0.03 x10 3/uL 0.00-0.03 LYMPHOCYTE # (test code=LY#) 1.50 x10 3/uL 1.0-3.8 MONOCYTE # (test code=MO#) 0.73 x10 3/uL 0.1-0.8 EOSINOPHIL # (test code=EO#) 0.13 x10 3/uL 0.0-0.2 BASOPHIL # (test code=BA#) 0.04 x10 3/uL 0.0-0.2 NUCLEATED RBC # (test code=NRBC#) 0.00 x10 3/uL 0.0-0.1 MANUAL DIFF REQUIRED (test code=MDIFF) NO DRUGS OF ABUSE SCREEN [id number] 13:07:00 Test Item Value Reference Range Comments URN COCAINE (test code=COCAURN) NEGATIVE NEGATIVE URN CANNABINOIDS (test POSITIVE NEGATIVE code=CANNABURN) URN AMPHETAMINE (test POSITIVE NEGATIVE code=AMPHETURN) URN BARBITURATE (test NEGATIVE NEGATIVE code=BARBITURN) URN BENZODIAZEPINE (test POSITIVE NEGATIVE Cut-off value:200 ng/mL code=BENZOURN) URN OPIATES (test POSITIVE NEGATIVE Cut-off value:2000 ng/mL code=OPIATURN) URN PHENCYCLIDINE (PCP) (test NEGATIVE NEGATIVE Cutoffs:Barbiturates code=PHENCURN) 200 ng/mLBenzodiazepines 200 ng/mLTHC Cannabinoids 50 ng/mLOpiates(Morphine) 2000 ng/mLAmphetamine 1000 ng/mLCocaine 300 ng/mLPCP phencyclidine 25 ng/mL Unconfirmed screening results shouldnot be used for non-medical purposes. DRUGS OF ABUSE SCREEN [id number] 12:40:00 Test Item Value Reference Range Comments URN COCAINE (test code=COCAURN) NEGATIVE NEGATIVE URN CANNABINOIDS (test NEGATIVE code=CANNABURN) URN AMPHETAMINE (test NEGATIVE code=AMPHETURN) URN BARBITURATE (test NEGATIVE NEGATIVE code=BARBITURN) URN BENZODIAZEPINE (test NEGATIVE code=BENZOURN) URN OPIATES (test NEGATIVE code=OPIATURN) URN PHENCYCLIDINE (PCP) (test NEGATIVE NEGATIVE Cutoffs:Barbiturates code=PHENCURN) 200 ng/mLBenzodiazepines 200 ng/mLTHC Cannabinoids 50 ng/mLOpiates(Morphine) 2000 ng/mLAmphetamine 1000 ng/mLCocaine 300 ng/mLPCP phencyclidine 25 ng/mL Unconfirmed screening results shouldnot be used for non-medical purposes. - XR FLUOROSCOPY 0-60 [id number] 16:49:00 FAX: Cesar Benavides [phone] [place]: St: ADM Name: MARK SALMERON [facility] : 1985 Age/S: 34/M [address] [place] [address] Unit#: [id number] Loc: [address] [address] Phys: Cesar Tadeo MD Acct: [id number] Dis Date: Status: ADM IN PHONE #: [phone] Exam Date: 05/09/2019 1628 FAX #: [phone] Reason: LEFT URETERAL STONE EXAMS: CPT CODE: [id number] XR FLUOROSCOPY 0-60 MIN 29921 Intraprocedural fluoroscopy was provided by the Department of Radiology. Any images obtained were interpreted by the surgeon intraoperatively. Total fluoroscopy time: 41 seconds Reference Air Kerma: 17.7 mGy FINDINGS: 10 intraoperative images were obtained during placement of a left ureteral stent. The initial image again shows an oval, 11 x 7 mm calcification projected just to the left of L2. Retrograde injection shows that this stone is identified in the proximal third of the left ureter. There was subsequent retrograde placement of the wire and stent. The stone was pushed into the region of the left renal pelvis. The final image obtained shows good position of the double pigtail left ureteral stent reaching from the left renal pelvis to the urinary bladder. IMPRESSION: 1. Left ureteral stone. 2. Placement of double pigtail left ureteral stent. SL: at 3551 Reported and signed by: Mikel Martínez M.D. CC: Cesar Tadeo MD Technologist: KATHRYN Pelletier RT(R) Trnscrd Date/Time/By: 05/09/2019 (9262) : By: EboniJ Orig Print D/T : S: 05/09/2019 (6637) PAGE 1 Signed ReportHGB [id number] 13:29:00 Test Item Value Reference Range Comments HEMOGLOBIN (test code=HGB) 11.2 g/dL 12.5-16.9 HEMATOCRIT (test code=HCT) 33.5 % 37.5-50.7 - XR ABDOMEN 1V (KUB)2019-05-09 11:02:00 FAX: Cesra Benavides [place]: St: ADM Name: MARK SALMERON [facility] : 1985 Age/S: 34/M [address] [place] [address] Unit#: [id number] Loc: [address] [address] Phys: Cesar Tadeo MD Acct: [id number] Dis Date: Status: ADM IN PHONE #: [phone] Exam Date: 05/09/2019 0855 FAX #: [phone] Reason: LEFT RENAL STONE EXAMS: CPT CODE: [id number] XR ABDOMEN 1V (KUB) 47304 EXAMINATION: Abdomen one view 05/09/2019 at 0840 hours. CLINICAL HISTORY: Left renal stone, left ureteral calculus. COMPARISON: Abdomen one view 03/30/2019. FINDINGS: The previously seen left ureteral stent is not evident. There is a 10 x 6 mm calculus projected to the left at the L2/L3 level. This mayrepresent the same calculus previously seen more laterally, in which case it may currently be in the left ureter. A smaller calculus is evident projected over the left kidney which was also previously evident. The bowel gas pattern is nonspecific. Retained fecal material is evident, particularly in the ascending colon. There is no evidence of free intraperitoneal air, although evaluation for this is suboptimal in the absence of upright or decubitus imaging. The visualized osseous structures are within normal limits. IMPRESSION: 1. Interval removal of left ureteral stent. 2. Suspect left ureteral calculus as detailed above. 3. Smaller stable left renal calculus. Electronically Signed by Caroline Zheng on 06/2018 at 1102 Reported and signed by: Celeste Zheng M.D. CC: Cesar Tadeo MD Technologist: Milady Hammer, RT(R); Jenny Damico RT(R) Trnscrd Date/Time/By: 06/2018 (1102) : By: [facility] [place] Orig Print D/T: S: 05/09/2019 (1106) PAGE 1 Signed ReportBASIC METABOLIC [id number] 05:31:00 Test Item Value Reference Range Comments SODIUM (test code=NA) 133 mEq/L 134-147 POTASSIUM (test code=K) 3.9 mEq/L 3.4-5.0 CHLORIDE (test code=CL) 102 mEq/L 100-108 CARBON DIOXIDE (test code=CO2) 25 mEq/L 21-33 ANION GAP (test code=GAP) 10 0-20 GLUCOSE (test code=GLU) 115 mg/dL 70-110 BLOOD UREA NITROGEN (test 32 mg/dL 7-18 code=BUN) GLOMERULAR FILTRATION RATE 58.0 105-110 Units of measure=ml/min/1.73 (test code=GFR) m2 CREATININE (test code=CREAT) 1.4 mg/dL 0.6-1.3 CALCIUM (test code=CA) 9.3 mg/dL 8.0-10.5 CBC W/AUTO [id number] 05:08:00 Test Item Value Reference Range Comments WHITE BLOOD CELL (test code=WBC) 13.02 x10 3/uL 4.5-11.0 RED BLOOD CELL (test code=RBC) 3.58 x10 6/uL 4.00-5.60 HEMOGLOBIN (test code=HGB) 12.1 g/dL 12.5-16.9 HEMATOCRIT (test code=HCT) 36.6 % 37.5-50.7 MEAN CELL VOLUME (test code=MCV) 102.2 fL 81.0-99.0 MEAN CELL HGB (test code=MCH) 33.8 pg 27.0-33.0 MEAN CELL HGB CONCETRATION (test code=MCHC) 33.1 g/dL 33.0-37.0 RED CELL DISTRIBUTION WIDTH CV (test 12.9 % 11.5-14.5 code=RDW) RED CELL DISTRIBUTION WIDTH SD (test 48.1 fL 37.0-54.0 code=RDW-SD) PLATELET COUNT (test code=PLT) 228 x10 3/uL 150-400 MEAN PLATELET VOLUME (test code=MPV) 9.4 fL 7.0-9.0 NEUTROPHIL % (test code=NT%) 76.1 % 56.0-77.0 IMMATURE GRANULOCYTE % (test code=IG%) 0.4 % 0.0-2.0 LYMPHOCYTE % (test code=LY%) 11.7 % 14.0-32.0 MONOCYTE % (test code=MO%) 10.8 % 4.8-9.0 EOSINOPHIL % (test code=EO%) 0.8 % 0.3-3.7 BASOPHIL % (test code=BA%) 0.2 % 0.0-2.0 NUCLEATED RBC % (test code=NRBC%) 0.0 % 0-0 NEUTROPHIL # (test code=NT#) 9.90 x10 3/uL 2.0-7.6 IMMATURE GRANULOCYTE # (test code=IG#) 0.05 x10 3/uL 0.00-0.03 LYMPHOCYTE # (test code=LY#) 1.52 x10 3/uL 1.0-3.8 MONOCYTE # (test code=MO#) 1.41 x10 3/uL 0.1-0.8 EOSINOPHIL # (test code=EO#) 0.11 x10 3/uL 0.0-0.2 BASOPHIL # (test code=BA#) 0.03 x10 3/uL 0.0-0.2 NUCLEATED RBC # (test code=NRBC#) 0.00 x10 3/uL 0.0-0.1 MANUAL DIFF REQUIRED (test code=MDIFF) NO UA RFLX MICR CULT IF [id number] 18:49:00 Test Item Value Reference Range Comments UA COLOR (test code=COLU) YELLOW YEL/STRAW UA APPEARANCE (test code=APPU) CLEAR CLEAR UA GLUCOSE DIPSTICK (test code=DGLUU) NEGATIVE NEGATIVE UA BILIRUBIN DIPSTICK (test code=BILU) NEGATIVE NEGATIVE UA KETONE DIPSTICK (test code=KETU) NEGATIVE NEGATIVE UA SPECIFIC GRAVITY (test code=SGU) 1.015 1.005-1.030 UA BLOOD DIPSTICK (test code=REANNA) NEGATIVE NEGATIVE UA PH DIPSTICK (test code=DARIO) 5.0 5.0-7.0 UA PROTEIN DIPSTICK (test code=PROU) NEGATIVE NEGATIVE UA UROBILINIOGEN DIPSTICK (test code=URO) 0.2 mg/dL 0.2-1.0 UA NITRITE DIPSTICK (test code=MARQUES) NEGATIVE NEGATIVE UA LEUKOCYTE ESTERASE DIPSTICK (test NEGATIVE NEGATIVE code=LEUU) UA WBC (test code=WBCU) 0-3 WBC/HPF 0-3 UA RBC (test code=RBCU) 0-3 RBC/HPF 0-3 UA WBC NO REFLEX (test code=WBCUCL) 0-3 WBC/HPF 0-3 UA BACTERIA (test code=BACU) NONE SEEN /HPF NONE SEEN UA SQUAMOUS CELLS (test code=SQU) 0-5 /HPF NONE SEEN UA HYALINE CAST (test code=HYALU) 0-2 /LPF NONE SEEN UA MUCUS (test code=MUCU) 1+ /LPF NONE SEEN Indication for culture: Flank PainSpecimen Description: CLEAN CATCHCALCULI URINARY WITH [id number] 14:08:00 Test Item Value Reference Range Comments ST COLOR (test [place] () code=COLST) ST SIZE (test 4x3x3 mm () code=SIZST) ST WEIGHT (test 31.0 mg () code=WGTST) ST COMPOSITION (test () Percentage (Represents the code=COMPST) % composition) ST CA OXALATE DIHYDRATE 15 % () (test code=CAOXDST) ST CA OXALATE 55 % () MONOHYDRATE (test code=CAOXMST) ST CA PHOSPHATE (test 30 % () code=CAPHST) ST NIDUS (test No Nidus visualized () code=NIDUSST) ST SURFACE CRYSTALS Comment: () Calcium oxalate dihydrate (test code=SURFST) ST COMMENT 2 (test Note: () Please do not submit code=CMTST2) specimens on Q-Tips, in tape, onfilters, or in liquids such as blood, urine or formalin.This may cause unnecessary biohazards, erroneous resultsand/or delay in the processing of the specimen. ST PHOTO (test () Photograph will follow code=PHOTST) under separate cover. ST COMMENT 3 (test () Physician questions code=CMTST3) regarding Calculi Analysis contactCommunity [facility] HospitalCo at: [phone]. SURGICAL [id number] 18:04:00 RUN DATE: 04/01/19 [facility] *LIVE* PAGE 1 RUN TIME: 1804 Specimen Inquiry RUN USER: INTERFACE PATIENT: MARK SALMERON [facility] [place] [facility] U #: [id number] AGE/SX: 34/M ROOM: [facility] RE03/20/19REG DR: Denis Mo MD : 85 BED: 1 DIS: STATUS: DIS IN TLOC: ----- ------- SPEC #: [id number] RECD: 03/31/19 STATUS: [place] #: [id number] KATIA: 03/31/19 [facility] DR: Denis Mo MD ENTERED: 04/01/19 SP TYPE: SURG SPEC OTHR DR: Self Referred Sam Koo MD, Jeromy T MDORDERED: GMLEVEL 4 CODES: [id number] - URETER, NOS COPIES TO: Self Referred Denis Mo MD [address] [place] [address] Sam Koo MD [address] [id number] Slim Ramirez MD [address] [place], [place] [address]vd [address] [place] [address] [email or web address] PROCEDURES: GM LEVEL 4 (Incomplete) TISSUES: 1. [...] CONTINUED ON NEXT PAGE RUN DATE: 04/01/19 [facility] *LIVE* PAGE 2 RUN TIME: 1804 Specimen Inquiry RUN USER: INTERFACE SPEC #: [id number] PATIENT: MARK SALMERON #[id number] (Continued)- POST-OP DIAGNOSIS Left ureter stone PRE-OP DIAGNOSIS Left ureter stone Signed SIGNATURE ON FILE Christin Ford MD 04/01/19 1804 END OF REPORT - XR FLUOROSCOPY 0-60 [id number] 15:37:00 FAX: Simon Galvez MD [phone] [place]: [address]: ADM Name: MARK SALMERON [facility] [place] : 1985 Age/S: 34/M [address] [place] [address] Unit#: [id number] Loc : [address] [address] Phys: Simon Ramirez MD Acct: [id number] Dis Date: Status: ADM IN PHONE #: [phone] Exam Date: 03/30/2019 1147 FAX #: [phone] Reason: STONE EXAMS: CPT CODE: [id number] XR FLUOROSCOPY 0-60 MIN 15297 Exam: Fluoroscopy provided for operating physician. Indication: 34-year-old male with stone. Comparison: None. Technique: Fluoroscopy provided for operating physician. Fluoroscopy time: 47 seconds Radiation dose: 21.5 mGycm2 Number of fluoroscopic images: 7 Findings: Fluoroscopy was provided for the operating physician. Please see operative report for details. Impression: Fluoroscopy was provided for the operating physician. Please see operative report for details. SL: [id number] at 1537 Reported and signed by: George Khoury M.D. CC: Simon Ramirez MD Technologist: Kierra AguirreRT(R) Trnscrd Date/Time/By: 03/30/2019 (6201) : By: Jo AnnAB53 Orig Print D/T : S: 03/30/2019 (7756) PAGE 1 Signed ReportUA RFLX MICR CULT IF [id number] 05:32:00 Test Item Value Reference Range Comments [...] 1V (KUB)2019-03-30 05:27:00 FAX: Ayad River NP [place]: St: ADM Name: MARK SALMERON [facility] : 1985 Age/S: 34/M [address] [place] [address] Unit#: [id number] Loc: [place] [address] Phys: Ayad River NP Acct: [id number] Dis Date: Status: ADM IN PHONE #: [phone] Exam Date: 03/30/2019 045 FAX #: [phone] Reason: Known kidney stone with stent EXAMS: CPT CODE: [id number] XR ABDOMEN 1V (KUB) 45762 EXAM: CR, XR ABDOMEN AP 1 V: [...] Stable left ureteral stent. SL: CHANDNI at 0553 Reported and signed by: Erik Pierre M.D. CC: Ayad River NP Technologist: RT Sergei(Palak)Palak Trnscrd Date/Time/By: 03/30/2019 (0539) : By: Jo AnnJS38 Orig Print D/T : S: 03/30/2019 (9475) PAGE 1 Signed ReportUA RFLX MICR CULT IF [id number] 05:22:00 Test Item Value Reference Range Comments [...] culture: Flank PainSpecimen Description: CLEAN CATCHBASIC METABOLIC [id number] 05:18:00 Test Item Value Reference Range Comments [...] (test code=CA) 9.1 mg/dL 8.0-10.5 BASIC METABOLIC [id number] 05:09:00 Test Item Value Reference Range Comments [...] (test code=CA) 9.1 mg/dL 8.0-10.5 CBC W/AUTO [id number] 04:47:00 Test Item Value Reference Range Comments [...] code=MDIFF) NO - CT ABD PELVIS W/O [id number] 21:09:00 Name: MARK SALMERON [facility] : 1985 Age/S: 34 / M [address] [place] [address] Unit #: [id number] Loc: [place] [id number] Phys: Angelic Frined NP Acct: [id number] Dis Date: Status: REG ER PHONE #: [phone] Exam Date: 2044 FAX #: [phone] Reason: flank pain, kidney stone EXAMS: CPTCODE: [id number] CT ABD PELVIS W/O CONT 94548 Clinical Indication: flank pain, kidney stone Comparison: [...] 1 Signed Report (CONTINUED) Name: MARK SALMERON [facility] : 1985 Age/S: 34 / M [address] [place] [address] Unit #: [id number] Loc: [place] [id number] Phys: Angelic Friend NP Acct: [id number] Dis Date: Status: REG ER PHONE #: [phone] Exam Date: 03/27/20192044 FAX #: [phone] Reason: flank pain, kidney stone EXAMS: CPTCODE: [id number] CT ABD PELVIS W/O CONT 82018 <Continued> PELVIS: There are no pelvic mass. [...] of diverticulitis of the distal colon. SL: ALDENH at 2108 Reported and signed by: Ishmael Raymundo M.D. CC: Angelic Friend NP Technologist:RT Linh(R)(CT); Kirsten CTDI: DLP: Trnscb Date/Time: 03/27/2019 (2108) RitoR.LNV Orig Print D/T: S : 03/27/2019 (2111) PAGE 2 Signed ReportUA RFLX MICR CULT IF [id number] 20:57:00 Test Item Value Reference Range [...] culture: Suprapubic PainSpecimen Description: CLEAN CATCHBASIC METABOLIC [id number] 20:51:00 Test Item Value Reference Range Comments [...] (test code=CA) 9.0 mg/dL 8.0-10.5 HEPATIC FUNCTION [id number] 20:51:00 Test Item Value Reference Range Comments TOTAL PROTEIN (test code=PROT) 7.6 g/dL 6.4-8.2 ALBUMIN (test code=ALB) 4.20 g/dL 3.4-5.0 BILIRUBIN TOTAL (test code=BILT) 0.2 MG/DL <1.5 BILIRUBIN DIRECT (test code=BILD) < 0.10 MG/DL 0.0-0.30 BILIRUBIN INDIRECT (test code=BILIND) 0.10 MG/DL SGOT/AST (test code=AST) 19 IUnit/L 15-37 SGPT/ALT (test code=ALT) 37 IUnit/L 15-65 ALKALINE PHOSPHATASE TOTAL (test code=ALKP) 48 IUnit/L 20-125 BASIC METABOLIC [id number] 20:44:00 Test Item Value Reference Range Comments [...] (test code=CA) 9.0 mg/dL 8.0-10.5 HEPATIC FUNCTION [id number] 20:44:00 Test Item Value Reference Range Comments TOTAL PROTEIN (test code=PROT) g/dL 6.4-8.2 ALBUMIN (test code=ALB) g/dL 3.4-5.0 BILIRUBIN TOTAL (test code=BILT) MG/DL <1.5 BILIRUBIN DIRECT (test code=BILD) MG/DL 0.0-0.30 SGOT/AST (test code=AST) IUnit/L 15-37 SGPT/ALT (test code=ALT) IUnit/L 15-65 ALKALINE PHOSPHATASE TOTAL (test code=ALKP) IUnit/L 20-125 CBC W/AUTO [id number] 20:32:00 Test Item Value Reference Range Comments [...] DIFF REQUIRED (test code=MDIFF) NO CBC W/AUTO [id number] 13:04:00 Test Item Value Reference Range Comments [...] DIFF REQUIRED (test code=MDIFF) NO SED RATE [id number] 13:04:00 Test Item Value Reference Range Comments SED RATE WESTERGREN (test code=SEDW) 1 mm/hr 0-15 COMPREHENSIVE METABOLIC [id number] 12:43:00 Test Item Value Reference Range Comments [...] PHOSPHATASE TOTAL 49 IUnit/L 20-125 (test code=ALKP) [id number] 12:43:00 Test Item Value Reference Range Comments LIPASE (test code=LIP) 71 IUnit/L 73-393 CBC W/AUTO [id number] 12:19:00 Test Item Value Reference Range Comments [...] DIFF REQUIRED (test code=MDIFF) NO SED RATE [id number] 12:19:00 Test Item Value Reference Range Comments SED RATE WESTERGREN (test code=SEDW) mm/hr 0-15 BASIC METABOLIC [id number] 04:59:00 Test Item Value Reference Range Comments [...] (test code=CA) 9.0 mg/dL 8.0-10.5 CBC W/AUTO [id number] 04:27:00 Test Item Value Reference Range Comments [...] concentrations <2 ng/mL are obtained. BASIC METABOLIC [id number] 08:36:00 Test Item Value Reference Range Comments [...] (test code=CA) 8.7 mg/dL 8.0-10.5 CBC W/AUTO [id number] 06:36:00 Test Item Value Reference Range Comments [...] MANUAL DIFF REQUIRED (test code=MDIFF) NO LACTIC [id number] 13:02:00 Test Item Value Reference Range Comments LACTIC ACID (test code=LACT) 0.7 mmol/L 0.4-1.9 - CT ABD PELVIS W/O [id number] 10:44:00 Name: MARK SALMERON [facility] : 1985 Age/S: 34 / M [address] [place] [address] Unit #: [id number] Loc: [place] [id number] Phys: Armando Mares MD Acct: [id number] Dis Date: Status: REG ER PHONE #: [phone] Exam Date: 05/2019 0947 FAX #: [phone] Reason: severe left flank pain, s/p stent EXAMS: CPTCODE: [id number] CT ABD PELVIS W/O CONT [address]05 CT ABDOMEN AND PELVIS WITHOUT CONTRAST. INDICATION: [...] 1 Signed Report (CONTINUED) Name: MARK SALMERON [facility] : 1985 Age/S: 34 / M [address] [place] [address] Unit #: [id number] Loc: [place] [address] Phys: Armando Mares MD Acct: [id number] Dis Date: Status: REG ER PHONE #: [phone] Exam Date: 03/20/2019 0947 FAX #: [phone] Reason: severe left flank pain, s/pstent EXAMS: CPT CODE: [id number] CT ABD PELVIS W/O CONT 86448 <Continued&gt ; MUSCULOSKELETAL: No suspicious osseous abnormality identified. IMPRESSION: 1. Nonobstructing nephrolithiasis, left greater than right. 2. Left ureteral stent once again seen with mid ureteral calculus appearing stable or distally migrated by a few millimeters since prior study. 3. Mild colonic diverticulosis. SL: [id number] at 1044 Reported and signed by: Shekhar Stevenson M.D. CC: Armando Mares MD Technologist:Kirsten Lam, RT(R)(CT) CTDI: DLP: Trnscb Date/Time: 03/20/2019 (1044) t.PRANEETHR.SG9 OrigPrint D /T: S: 03/20/2019 (8841) PAGE 2 Signed ReportCOMPREHENSIVE METABOLIC [id number] 10:17:00 Test Item Value Reference Range Comments [...] TOTAL 47 IUnit/L 20-125 (test code=ALKP) URINALYSIS [id number] 10:10:00 Test Item Value Reference Range Comments [...] code=MUCU) TRACE /LPF NONE SEEN COMPREHENSIVE METABOLIC [id number] 10:09:00 Test Item Value Reference Range Comments [...] TOTAL (test code=ALKP) IUnit/L 20-125 CBC W/AUTO [id number] 10:00:00 Test Item Value Reference Range Comments [...] code=MDIFF) NO - CT ABD PELVIS W/O [id number] 16:42:00 Name: MARK SALMERON [facility] : 1985 Age/S: 34 / M [address] [place] [address] Unit #: [id number] Loc: [place] [id number] Phys: Loretta Lowe MD Acct: [id number] Dis Date: Status: REG ER PHONE #: [phone] Exam Date: 02/2019 1627 FAX #: [phone] Reason: acute Lflank pain EXAMS: CPTCODE: [id number] CT ABD PELVIS W/O CONT 09961 Clinical Indication: acute L flank pain, DATE: [...] 1 Signed Report (CONTINUED) Name: MARK SALMERON [facility] : 1985 Age/S: 34 / M[address] [facility] [address] Unit #: [id number] Loc: [place] [address] Phys: Loretta Lowe MD Acct: [id number] Date: Status: REG ER PHONE #: [phone] Exam Date: 03/17/2019 1627 FAX #: [phone] Reason: acute L flank pain EXAMS: CPT CODE: [id number] CT ABD PELVIS W/O CONT 22818 <Continued> Bladder: Normal. Soft tissues: Normal. Bones: No acute abnormality. Age- relateddegenerative findings. IMPRESSION: 1. Bilateral nephrolithiasis without hydronephrosis. 2. Interval left double-J ureteral stent placement is seen with 3 mm stone within the distal left ureter. SL: [id number] Electronically Signed by Maya Moore on 02/2019 at 1642 Reported and signed by: Dorie Moore D.O. CC: Leon BLAS Technologist:RT Chuyita(R)(CT) CTDI: DLP: Trnscb Date/Time: 03/17/2019 (1641) t.PRANEETHR.MP37 Orig Print D/T: S: 03/17/2019 (164) PAGE 2 Signed ReportUA RFLX MICR CULT IF [id number] 16:41:00 Test Item Value Reference Range Comments [...] culture: Flank PainSpecimen Description: CLEAN CATCHHEPATIC FUNCTION [id number] 16:05:00 Test Item Value Reference Range Comments TOTAL PROTEIN (test code=PROT) 8.0 g/dL 6.4-8.2 ALBUMIN (test code=ALB) 4.30 g/dL 3.4-5.0 BILIRUBIN TOTAL (test code=BILT) 0.3 MG/DL <1.5 BILIRUBIN DIRECT (test code=BILD) 0.10 MG/DL 0.0-0.30 BILIRUBIN INDIRECT (test code=BILIND) 0.20 MG/DL SGOT/AST (test code=AST) 15 IUnit/L 15-37 SGPT/ALT (test code=ALT) 32 IUnit/L 15-65 ALKALINE PHOSPHATASE TOTAL (test code=ALKP) 52 IUnit/L 20-125 [id number] 16:05:00 Test Item Value Reference Range Comments LIPASE (test code=LIP) 63 IUnit/L 73-393 PROTHROMBIN [id number] 15:59:00 Test Item Value Reference Range Comments [...] Infarction (to prevent recurrent infarct). 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 [facility] CHEMISTRY 8 [id number] 15:46:00 Test Item Value Reference Range Comments ISTAT-SODIUM (test code=NAP) MMOL/L 134-147 ISTAT-POTASSIUM (test code=KP) MMOL/L 3.4-5.0 ISTAT-CHLORIDE (test code=CLP) MMOL/L 100-108 ISTAT CARBON DIOXIDE (test code=ISTAT-CO2) mmol/L 21-33 ISTAT CALCIUM IONIZED (test code=ISTAT-SANDY) MG/DL 1.12-1.32 ISTAT-GLUCOSE (test code=GLUP) MG/DL 70-110 ISTAT-BUN (test code=BUNP) MG/DL 7-18 BEDSIDE CREATININE (test code=CREATBED) MG/DL 0.6-1.3 GLOMERULAR FILTRATION RATE POC (test code=GFRBED) 103 ML/MIN CHEMISTRY 8 [id number] 15:46:00 Test Item Value Reference Range Comments ISTAT-SODIUM (test code=NAP) 140 MMOL/L 134-147 ISTAT-POTASSIUM (test 4.1 MMOL/L 3.4-5.0 code=KP) ISTAT-CHLORIDE (test 104 MMOL/L 100-108 Performed by certified code=CLP) 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 [facility] ISTAT CARBON DIOXIDE (test 25.0 mmol/L 21-33 code=ISTAT-CO2) ISTAT CALCIUM IONIZED (test 1.20 MG/DL 1.12-1.32 code=ISTAT-SANDY) ISTAT-GLUCOSE (test 81 MG/DL 70-110 code=GLUP) ISTAT-BUN (test code=BUNP) 22 MG/DL 7-18 BEDSIDE CREATININE (test 0.9 MG/DL 0.6-1.3 code=CREATBED) GLOMERULAR FILTRATION RATE 103 ML/MIN POC (test code=GFRBED) CBC W/AUTO [id number] 15:44:00 Test Item Value Reference Range Comments [...] REQUIRED (test code=MDIFF) NO - US RETROPERITONEAL [id number] 16:46:00 Name: MARK SALMERON [facility] : 1985 Age/S: 34 / M [address] [place] [address] Unit #: [id number] Loc: [place], [place] Phys: Denis Mo MD Acct: [id number] Dis Date: Status: ADM IN PHONE #: [phone] Exam Date: 12/2018 1602 FAX #: [phone] Reason: CONTINUED LEFT FLANK PAIN EXAMS: CPTCODE: [id number] RETROPERITONEAL COM 76927 Patient: MARK SALMERON. : 1985 ; Age: 34 years; Gender: Male. MR: [id number].Ordering physician: Denis Mo MD. PROCEDURE: RENAL ULTRASOUND [...] 1 Signed Report (CONTINUED) Name: MARK SALMERON [facility] : 1985 Age/S: 34 / M [address] [place] [address] Blvd Unit #: [id number] Loc: [place] [address] Phys: Denis Mo MD Acct: [id number] Dis Date: Status: ADM IN PHONE #: [phone] Exam Date: 03/15/2019 1602FAX #: [phone] Reason: CONTINUED LEFT FLANK PAIN EXAMS: CPT CODE: [id number] [facility] COM 94175 <Continued> SL: [id number] at 1646 Reported and signed by: Ricardo Reed M.D. CC: Technologist: Theresa Chery RDMS (AB) (OB) Trnscb Date/Time: 03/15/2019 (1645) Sebas7 Orig Print D/T : S: 03/15/2019 (250) Probe: PAGE 2 Signed ReportCBC W/AUTO [id number] 12:17:00 Test Item Value Reference Range Comments [...] DIFF REQUIRED (test code=MDIFF) NO BASIC METABOLIC [id number] 12:10:00 Test Item Value Reference Range Comments [...] (test code=CA) 8.7 mg/dL 8.0-10.5 BASIC METABOLIC [id number] 12:07:00 Test Item Value Reference Range Comments [...] (test code=CA) 8.7 mg/dL 8.0-10.5 BASIC METABOLIC [id number] 13:59:00 Test Item Value Reference Range Comments [...] (test code=CA) 9.1 mg/dL 8.0-10.5 CBC W/AUTO [id number] 13:37:00 Test Item Value Reference Range Comments [...] DIFF REQUIRED (test code=MDIFF) NO BASIC METABOLIC [id number] 08:09:00 Test Item Value Reference Range Comments [...] (test code=CA) 8.5 mg/dL 8.0-10.5 CBC W/AUTO [id number] 06:49:00 Test Item Value Reference Range Comments [...] (test code=MDIFF) NO - XR FLUOROSCOPY 0-60 [id number] 15:30:00 FAX: Simon Galvez MD [phone] [place]: St: ADM Name: MARK SALMERON [facility] : 1985 Age/S: 34/M [address] [place] [address] Unit#: [id number] Loc: G.[address] [place] [address] Phys: Simon Ramirez MD Acct: [id number] Dis Date: Status: ADM IN PHONE #: [phone] Exam Date: 03/12/2019 1446 FAX #: [phone] Reason: LEFT URETERAL STONE, HYDRONEPHROSIS EXAMS: CPT CODE: [id number] XR FLUOROSCOPY 0-60 MIN 32378 Study: - XR FLUOROSCOPY 0-60 MIN 03/12/2019 2:16 PM Patient Name: MARK SALMERON MR: [id number] DATE: 03/12/2019 2:16 PM : 03/1985; Age: 34 years y/o Male Ordering Physician: Simon Ramirez MD Clinical Indication: LEFT URETERAL STONE, HYDRONEPHROSIS Intraprocedural fluoroscopy was provided by the Department of Radiology. Any images obtained were interpreted by the surgeon intraoperatively. Fluoroscopy time: 39 seconds Reference Air Kerma: 17.2 mGy SL: [id number] * * Electronically Signed by Maya Moore on at 1530 Reported and signed by: Dorie Moore D.O. CC: Simon Ramirez MD Technologist: LEANNE Pathak) Trnscrd Date/Time/By: 03/12/2019 (1530) : By: Jo AnnMP37 Orig Print D/T: S: 09/2018 (2343) PAGE 1 Signed ReportDRUGS OF ABUSE SCREEN [id number] 14:08:00 Test Item Value Reference Range Comments [...] for non-medical purposes. DRUGS OF ABUSE SCREEN [id number] 13:58:00 Test Item Value Reference Range Comments [...] be used for non-medical purposes. COMPREHENSIVE METABOLIC [id number] 04:00:00 Test Item Value Reference Range Comments [...] 45 IUnit/L 20-125 (test code=ALKP) COMPREHENSIVE METABOLIC [id number] 03:58:00 Test Item Value Reference Range Comments [...] TOTAL (test code=ALKP) IUnit/L 20-125 CBC W/AUTO [id number] 03:26:00 Test Item Value Reference Range Comments [...] MANUAL DIFF REQUIRED (test code=MDIFF) NO URINALYSIS [id number] 03:05:00 Test Item Value Reference Range Comments [...] NONE SEEN - CT ABD PELVIS W/O [id number] 02:17:00 Name: MARK SALMERON [facility] : 1985 Age/S: 34 / M [address] [place] [address] Blvd Unit #: [id number] Loc: [place] [id number] Phys: Cortez Dickson MD Acct: [id number] Dis Date: Status: PRE ER PHONE #: [phone] Exam Date: 09/2018 0202 FAX #: [phone] Reason: L FLANKPAIN EXAMS: CPTCODE: [id number] CT ABD PELVIS W/O CONT 33705 PROCEDURE: CT abdomen and pelvis without contrast dated 03/12/2019 INDICATION: Acute left flank andleft lower quadrant pain. COMPARISON: CT abdomen dated 01/19/2019 TECHNIQUE: A renal stone protocol CT of the abdomen pelvis was performed using helical images from the upper abdomen through the pubic symphysis with subsequent sagittal and coronal reconstruction. IV CONTRAST: None. GI CONTRAST: None. CT imaging performed at [facility] utilizes radiation dose optimization techniques which [...] 1 Signed Report (CONTINUED) Name: MARK SALMERON [facility] : 1985 Age/S: 34 / M [address] [place] [address] Blvd Unit #: [id number] Loc: [place] [address] Phys: Cortez Dickson MD Acct:[id number] Dis Date: Status: PRE ER PHONE #: [phone] Exam Date: 03/12/2019 0202 FAX #: [phone] Reason: L FLANK PAIN EXAMS: CPT CODE : [id number] CT ABD PELVIS W/O CONT 28603 <Continued> PERITONEUM: There is no evidence of [...] Brayan Campa M.D. CC: Cortez Dickson MD Technologist:RT Linh(R)(CT) CTDI: DLP: Trnscb Date/Time: 03/12/2019 (216) t.ADELAIDA Orig Print D/T: S: 03/12/2019 (022) PAGE 2 Signed Report- CT ABD PELVIS W/O [id number] 12:15:00 Name: MARK SALMERON [facility] : 1985 Age/S: 33 / M [address] [place] [address] Unit #: [id number] Loc: [place] [id number] Phys: Max Lawton Acct: [id number] Dis Date: Status: REG ER PHONE #: [phone] Exam Date: 01/19/2019 1045 FAX #: [phone] Reason : L sidedlower abdominal and flank pain with jonah EXAMS: CPTCODE: [id number] CT ABD PELVIS W/O CONT 09521 STUDY: - CT ABD PELVIS W/O CONT 2018 10:14 AM Ordering Physician: AYUSH Arteaga Patient Name: MARK SALMERON MR: [id number] : 1985; Age: 33 years y/o Male [...] 1 Signed Report (CONTINUED) Name: MARK SALMERON [facility] : 1985 Age/S: 33 / M [address] [place] [address] Unit #: [id number] Loc: [place] [address] Phys: Max Lawton Acct: [id number] Dis Date: Status: REG ER PHONE #: [phone] Exam Date: 01/19/2019 1045 FAX #: [phone] Reason: L sided lower abdominal and flank pain with jonah EXAMS: CPT CODE: [id number] CT ABD PELVIS W/O CONT 32824 <Continued> ABDOMINAL ORGANS: Liver: Normal nonenhanced without [...] calculus in the left inferior pole SL: [id number] PAGE 2 Signed Report (CONTINUED) Name: MARK SALMERON [facility] : 1985 Age/S: 33 / M [address] [place] [address] Blvd Unit #: [id number] Loc: [place] [address] Phys: Max Lawton Acct: [id number] Dis Date: Status: REG ER PHONE #: [phone] Exam Date: 01/19/2019 1045 FAX #: [phone] Reason : L sided lower abdominal and flank pain with jonah EXAMS: CPT CODE: [id number] CT ABD PELVIS W/O CONT 83415 <Continued> at 1215 Reported and signed by: William Griffin M.D. CC: Max PEACOCK Technologist:RT Vladimir(R)(CT) CTDI: DLP: Trnscb Date/Time: 01/19/2019 (1215) t.PRANEETHR.AP24 Orig Print D/T: S: 01/19/2019 (1912) PAGE 3 Signed ReportURINALYSIS [id number] 11:45:00 Test Item Value Reference Range Comments [...] code=MUCU) 2+ /LPF NONE SEEN COMPREHENSIVE METABOLIC [id number] 11:16:00 Test Item Value Reference Range Comments [...] PHOSPHATASE TOTAL 51 IUnit/L 20-125 (test code=ALKP) [id number] 11:16:00 Test Item Value Reference Range Comments LIPASE (test code=LIP) 53 IUnit/L 73-393 CBC W/AUTO [id number] 11:00:00 Test Item Value Reference Range Comments [...]
[2019-05-25 03:05] LABS: Absolute Lymphocytes (CBC) 1.7 K/uL (0.7-4.9); Basophils % 0.8 % (0-1.3); Hematocrit 36.8 % (39.6-49.0); Lymphocytes % 24.7 % (15.3-44.8); MPV 7.8 fL (7.6-11.3); RBC Red Blood Cell Count 3.76 M/uL (4.33-5.43)
--- NOTE | 2019-05-25 03:23 | EDPHYS ---
Physician Documentation [facility] Name: Erwin Hernandez Age: 34 yrs Sex: Male : 1985 Arrival Date: 05/25/2019 Time: 02:09 Bed 7 Private MD: ED Physician Vignesh Hill HPI: 05/25 02:14 This 34 yrs old Male presents to ER via EMS with complaints of bilateral tw4 flank pain. 02:14 The patient complains of pain in the left low back and right low back. The pain does tw4 not radiate. Onset: The symptoms/episode began/occurred yesterday. Modifying factors: The symptoms are alleviated by nothing. the symptoms are aggravated by nothing. Associated signs and symptoms: Pertinent positives: nausea. Severity of pain: At its worst the pain was severe just prior to arrival, in the emergency department the pain is unchanged. The patient has not experienced similar symptoms in the past. Historical: - Allergies: 02:14 No Known Allergies; ea - Home Meds: 02:14 Hydrocodone-Acetaminophen Oral [Active]; amlodipine oral [Active]; ea - PMHx: 02:14 Kidney stones; Hypertension; ea - PSHx: 02:14 Kidney stents; ea - Immunization history:: Adult Immunizations up to date. - Social history:: Smoking status: Patient uses tobacco products, smokes one pack cigarettes per day. - Ebola Screening: : No symptoms or risks identified at this time. ROS: 02:14 Constitutional: Negative for fever, chills, and weight loss, Eyes: Negative for injury, tw4 pain, redness, and discharge, Cardiovascular: Negative for chest pain, palpitations, and edema, Respiratory: Negative for shortness of breath, cough, wheezing, and pleuritic chest pain, Abdomen/GI: Negative for abdominal pain, nausea, vomiting, diarrhea, and constipation, MS/Extremity: Negative for injury and deformity, Skin: Negative for injury, rash, and discoloration. 02:14 : Positive for flank pain, Negative for injury or acute deformity, urinary symptoms, urinary frequency, small amounts, hematuria, pelvic pain, burning with urination, difficulty urinating, bladder incontinence, foul smelling urine, penile discharge, penile pain, testicular pain acute changes. Exam: 02:14 Head/Face: Normocephalic, atraumatic. Chest/axilla: Normal chest wall appearance and tw4 motion. Nontender with no deformity. No lesions are appreciated. Cardiovascular: Regular rate and rhythm with a normal S1 and S2. No gallops, murmurs, or rubs. Normal PMI, no JVD. No pulse deficits. Respiratory: Lungs have equal breath sounds bilaterally, clear to auscultation and percussion. No rales, rhonchi or wheezes noted. No increased work of breathing, no retractions or nasal flaring. Abdomen/GI: Soft, non-tender, with normal bowel sounds. No distension or tympany. No guarding or rebound. No evidence of tenderness throughout. 02:14 Skin: Warm, dry with normal turgor. Normal color with no rashes, no lesions, and no evidence of cellulitis. MS/ Extremity: Pulses equal, no cyanosis. Neurovascular intact. Full, normal range of motion. Neuro: Awake and alert, GCS 15, oriented to person, place, time, and situation. Cranial nerves II-XII grossly intact. Motor strength 5/5 in all extremities. Sensory grossly intact. Cerebellar exam normal. Normal gait. 02:14 Constitutional: The patient appears in obvious distress, moderately distressed, in obvious pain, uncomfortable. 02:14 Back: CVA tenderness, that is moderate, is noted bilaterally. Vital Signs: 02:16 BP 145 / 99; Pulse 76; Resp 18; Temp 97.3; Pulse Ox 100% ; Weight 88.45 kg; Height 6 ea ft. (182.88 cm); Pain 10/10; 03:24 BP 106 / 63; Pulse 54; Resp 18; Pulse Ox 99% ; ea 02:16 Body Mass Index 26.45 (88.45 kg, 182.88 cm) ea MDM: 03:22 Patient medically screened. tw4 06:46 Differential diagnosis: nephrolithiasis, pyelonephritis, UTI, pancreatitis. Data tw4 reviewed: vital signs, nurses notes. Data interpreted: Pulse oximetry: Interpretation: normal. Counseling: I had a detailed discussion with the patient and/or guardian regarding: the historical points, exam findings, and any diagnostic results supporting the discharge/admit diagnosis, lab results, radiology results. Medication response: Toradol relieved patient's pain. The symptoms have resolved. Response to treatment: the patient's symptoms have resolved after treatment, and as a result, I will discharge patient. Special discussion: Based on the patient's Hx, exam, and Dx evaluation, there is no indication for emergent surgery or inpatient Tx. It is understood by the patient/guardian that if the Sx's persist or worsen they need to return immediately for re-evaluation. I discussed with the patient/guardian in detail that at this point there is no indication for admission to the hospital. It is understood, however, that if the symptoms persist or worsen the patient needs to return immediately for re-evaluation. 06:47 Data reviewed: lab test result(s), CBC, white blood cell count, hemoglobin, hematocrit, tw4 platelets, electrolytes, sodium, potassium, chloride, serum bicarbonate, BUN, creatinine, serum glucose, hepatic panel, radiologic studies, CT scan. 05/25 02:10 Order name: Basic Metabolic Panel [facility] 05/25 02:10 Order name: CBC with Diff [facility] 05/25 02:10 Order name: Creatinine for Radiology [facility] 05/25 02:10 Order name: Hepatic Function [facility] 05/25 02:10 Order name: Lipase [facility] 05/25 03:18 Order name: CBC with Automated Diff [facility] 05/25 02:10 Order name: CT Stone Protocol [facility] 05/25 03:28 Order name: Creatinine (Radiology Only) [facility] 05/25 03:31 Order name: Basic Metabolic Panel [facility] 05/25 03:31 Order name: Liver (Hepatic) Function [facility] 05/25 03:31 Order name: Lipase [facility] 05/25 02:10 Order name: IV Saline Lock; Complete Time: 02:19 [facility] 05/25 02:10 Order name: Labs collected and sent; Complete Time: 02:19 [facility] Administered Medications: 02:15 Drug: NS 0.9% 1000 ml Route: IV; Rate: 1 bolus; Site: right antecubital; tl1 03:45 Follow up: Response: No adverse reaction; IV Status: Completed infusion; IV Intake: ea 1000ml 02:16 Drug: fentaNYL (PF) 50 mcg {Note: restless 1.} Route: IVP; Infused Over: 2 mins; Site: tl1 right antecubital; 02:31 Follow up: Response: No adverse reaction; Pain is decreased; RASS: Alert and Calm (0) ea 02:16 Drug: TORadol 30 mg Route: IVP; Infused Over: 2 mins; Site: right antecubital; tl1 02:30 Follow up: Response: No adverse reaction ea 02:20 CANCELLED (Duplicate Order): fentaNYL (PF) 50 mcg IVP once; RASS on ADMIN: Combtv4, ea Very Agttd3, Agttd2, Rstlss1, AlertClm0, Drwsy-1, Lt Sdtn-2, Mod Sdtn-3, Dp Sdtn-4, UnArsble-5 02:20 CANCELLED (Duplicate Order): TORadol 30 mg IVP once ea Disposition: 05/25/19 03:22 Discharged to Home. Impression: Calculus of kidney with calculus of ureter. - Condition is Stable. - Discharge Instructions: Kidney Stones, Renal Colic. - Prescriptions for Ibuprofen 800 mg Oral Tablet - take 1 tablet by ORAL route every 8 hours As needed take with food; 30 tablet. Tylenol- Codeine #3 300-30 mg Oral Tablet - take 2 tablet by ORAL route every 6 hours As needed; 6 tablet. Flomax 0.4 mg Oral Capsule, Sust. Release 24 hr - take 1 capsule by ORAL route once daily 1/2 hour following the same meal each day; 30 capsule. - Medication Reconciliation Form, Thank You Letter, Antibiotic Education, Prescription Opioid Use form. - Follow up: Private Physician; When: Upon discharge from the Emergency Department; Reason: Recheck today's complaints, Continuance of care. Follow up: Ru Ward MD; When: Upon discharge from the Emergency Department; Reason: Recheck today's complaints, Continuance of care. Signatures: Dispatcher [employer] EDCarissa Polanco RN RN tl1 Neena Mireles RN RN Vignesh Arreaga MD MD tw4 Corrections: (The following items were deleted from the chart) 02:20 02:10 fentaNYL (PF) 50 mcg IVP once; RASS on ADMIN: Combtv4, Very Agttd3, Agttd2, ea Rstlss1, AlertClm0, Drwsy-1, Lt Sdtn-2, Mod Sdtn-3, Dp Sdtn-4, UnArsble-5 ordered. ea 02:20 02:10 TORadol 30 mg IVP once ordered. ignacia beth 03:28 03:22 05/25/2019 03:22 Discharged to Home. Impression: Calculus of kidney with calculus tw4 of ureter. Condition is Stable. Forms are Medication Reconciliation Form, Thank You Letter, Antibiotic Education, Prescription Opioid Use. Follow up: Private Physician; When: Upon discharge from the Emergency Department; Reason: Recheck today's complaints, Continuance of care. tw4 03:59 03:28 05/25/2019 03:22 Discharged to Home. Impression: Calculus of kidney with calculus ea of ureter. Condition is Stable. Discharge Instructions: Kidney Stones, Renal Colic. Prescriptions for Ibuprofen 800 mg Oral Tablet - take 1 tablet by ORAL route every 8 hours As needed take with food; 30 tablet, Tylenol-Codeine #3 300-30 mg Oral Tablet - take 2 tablet by ORAL route every 6 hours As needed; 6 tablet, Flomax 0.4 mg Oral Capsule, Sust. Release 24 hr - take 1 capsule by ORAL route once daily 1/2 hour following the same meal each day; 30 capsule. and Forms are Medication Reconciliation Form, Thank You Letter, Antibiotic Education, Prescription Opioid Use. Follow up: Private Physician; When: Upon discharge from the Emergency Department; Reason: Recheck today's complaints, Continuance of care. Follow up: Ru Ward; When: Upon discharge from the Emergency Department; Reason: Recheck today's complaints, Continuance of care. tw4
--- NOTE | 2019-05-25 03:23 | ER ---
Nurse's Notes [facility] Name: Erwin Hernandez Age: 34 yrs Sex: Male : 1985 Arrival Date: 05/25/2019 Time: 02:09 Bed 7 Private MD: Diagnosis: Calculus of kidney with calculus of ureter Presentation: 05/25 02:10 Presenting complaint: EMS states: Pt complaining of back pain that radiated to groin on ea jules sides, pt had stent placed in [place] for current kidney stones one week ago. Pt reports Dr. Wagner at [place] placed the stent a week ago, reported the pain resolved but came back yesterday. Transition of care: patient was not received from another setting of care. Onset of symptoms was May 25, 2019. Risk Assessment: Do you want to hurt yourself or someone else? Patient reports no desire to harm self or others. Initial Sepsis Screen: Does the patient meet any 2 criteria? No. Patient's initial sepsis screen is negative. Does the patient have a suspected source of infection? No. Patient's initial sepsis screen is negative. Care prior to arrival: Medication(s) given: 1 gram IV Tylenol, 20 G to right AC. 02:10 Method Of Arrival: EMS: [facility] ea 02:10 Acuity: EVELYNE 3 ea Historical: - Allergies: 02:14 No Known Allergies; ea - Home Meds: 02:14 Hydrocodone-Acetaminophen Oral [Active]; amlodipine oral [Active]; ea - PMHx: 02:14 Kidney stones; Hypertension; ea - PSHx: 02:14 Kidney stents; ea - Immunization history:: Adult Immunizations up to date. - Social history:: Smoking status: Patient uses tobacco products, smokes one pack cigarettes per day. - Ebola Screening: : No symptoms or risks identified at this time. Screenin:13 Abuse screen: Denies threats or abuse. Nutritional screening: No deficits noted. ea Tuberculosis screening: No symptoms or risk factors identified. Fall Risk IV access (20 points). Assessment: 02:17 General: Appears uncomfortable, Behavior is appropriate for age. Pain: Complains of ea pain in right low back and left low back Pain radiates to groin. Neuro: Level of Consciousness is awake, alert, obeys commands, Oriented to person, place, time, situation. Cardiovascular: Patient's skin is warm and dry. Respiratory: Airway is patent Respiratory effort is even, unlabored, Respiratory pattern is regular, symmetrical. : Reports burning with urination. Derm: Skin is diaphoretic, Skin is pale, Skin temperature is warm. 02:27 Reassessment: Patient and/or family updated on plan of care and expected duration. Pain ea level reassessed. Pt alert and oriented x 3, respirations even and unlabored, chest expansions even and symmetrical. Pt returned from CT. 03:58 Reassessment: Patient and/or family updated on plan of care and expected duration. Pain ea level reassessed. Patient is alert, oriented x 3, equal unlabored respirations, skin warm/dry/pink. Discharge instruction given to patient, verbalized the understanding of instruction. Pt left ED ambulatory, tolerating well. Reports he will wait in the lobby for his ride Patient states feeling better. Vital Signs: 02:16 BP 145 / 99; Pulse 76; Resp 18; Temp 97.3; Pulse Ox 100% ; Weight 88.45 kg; Height 6 ea ft. (182.88 cm); Pain 10/10; 03:24 BP 106 / 63; Pulse 54; Resp 18; Pulse Ox 99% ; ea 02:16 Body Mass Index 26.45 (88.45 kg, 182.88 cm) ea ED Course: 02:09 Patient arrived in ED. tw4 02:09 Vignesh Hill MD is Attending Physician. tw4 02:10 Neena Mireles, RN is Primary Nurse. ea 02:13 Triage completed. ea 02:13 Patient has correct armband on for positive identification. Placed in gown. Bed in low ea position. Call light in reach. Side rails up X2. 02:14 Arm band placed on right wrist. Patient placed in an exam room, on a stretcher, on ea pulse oximetry. 02:15 Maintain EMS IV. Dressing intact. Good blood return noted. Site clean \T\ dry. Gauge \T\ ea site: 20 G to RAC . 03:28 Ru Ward MD is Referral Physician. tw4 03:57 No provider procedures requiring assistance completed. IV discontinued, intact, ea bleeding controlled, No redness/swelling at site. Pressure dressing applied. Administered Medications: 02:15 Drug: NS 0.9% 1000 ml Route: IV; Rate: 1 bolus; Site: right antecubital; tl1 03:45 Follow up: Response: No adverse reaction; IV Status: Completed infusion; IV Intake: ea 1000ml 02:16 Drug: fentaNYL (PF) 50 mcg {Note: restless 1.} Route: IVP; Infused Over: 2 mins; Site: tl1 right antecubital; 02:31 Follow up: Response: No adverse reaction; Pain is decreased; RASS: Alert and Calm (0) ea 02:16 Drug: TORadol 30 mg Route: IVP; Infused Over: 2 mins; Site: right antecubital; tl1 02:30 Follow up: Response: No adverse reaction ea 02:20 CANCELLED (Duplicate Order): fentaNYL (PF) 50 mcg IVP once; RASS on ADMIN: Combtv4, ea Very Agttd3, Agttd2, Rstlss1, AlertClm0, Drwsy-1, Lt Sdtn-2, Mod Sdtn-3, Dp Sdtn-4, UnArsble-5 02:20 CANCELLED (Duplicate Order): TORadol 30 mg IVP once ea Intake: 03:45 IV: 1000ml; Total: 1000ml. ea Outcome: 03:22 Discharge ordered by . tw4 03:58 Discharged to home ambulatory. ea 03:58 Condition: stable 03:58 Discharge instructions given to patient, Instructed on discharge instructions, follow up and referral plans. medication usage, Demonstrated understanding of instructions, follow-up care, medications. 03:58 Prescriptions given X 3. 03:59 Patient left the ED. ea Signatures: Carissa Tomlin RN RAFAT tl1 Neena Mireles RN Vignesh Velez ea, MD MD tw4 Corrections: (The following items were deleted from the chart) 02:16 02:15 Inserted saline lock: 20 gauge in right antecubital area, using aseptic ea technique. ea 02:18 02:16 fentaNYL (PF) 50 mcg IVP in right antecubital over 2 mins tl1 tl1
[2019-05-25 03:31] LABS: ALT/SGPT 46 U/L (12-78); AST/SGOT 31 U/L (15-37); Albumin 3.6 g/dL (3.4-5.0); Alkaline Phosphatase 47 U/L (45-117); BUN Blood Urea Nitrogen 17 mg/dL (7-18); Bicarbonate 26 mmol/L (21-32); Bilirubin Direct < 0.1 mg/dL (0-0.2); Bilirubin Total 0.2 mg/dL (0.2-1.0); Glucose Level 101 mg/dL (74-106); Lipase 88 U/L (73-393); Sodium Level 142 mmol/L (136-145)
--- NOTE | 2019-05-25 12:22 | RAD REPORT ---
EXAM DESCRIPTION: CT - Stone Protocol - 05/25/2019 5:44 am CLINICAL HISTORY: The patient is 34 years old and is Male; FLANK PAIN TECHNIQUE: Axial computed tomography images of the abdomen and pelvis without intravenous contrast. Sagittal and coronal reformatted images were created and reviewed. This CT exam was performed usi ng one or more of the following dose reduction techniques: automated exposure control, adjustment o f the mA and/or kV according to patient size, and/or use of iterative reconstruction technique. COMPARISON: CT of the abdomen and pelvis April 11, 2019. FINDINGS: LUNG BASES: Unremarkable. No mass. No consolidation. ABDOMEN: LIVER: Homogeneous without focal mass. GALLBLADDER AND BILE DUCTS: No calcified stones. No ductal dilation. PANCREAS: Unremarkable. No ductal dilation. SPLEEN: Unremarkable. ADRENALS: Unremarkable. No mass. KIDNEYS AND URETERS: There has been placement of a left double-J ureteral stent with resolution of the previously demonstrated left hydroureteronephrosis. Bilateral intrarenal calcifications are present. STOMACH AND BOWEL: The stomach is distended with food contents and air. The small bowel is delia l in caliber. Stool is present throughout the colon. There is no mucosal thickening or evidence of emily wel obstruction. PELVIS: APPENDIX: The appendix is normal in caliber without surrounding inflammation. BLADDER: Unremarkable. No stones. REPRODUCTIVE: Unremarkable as visualized. ABDOMEN and PELVIS: INTRAPERITONEAL SPACE: Unremarkable. No free air. No significant fluid collection. BONES/JOINTS: No acute fracture. SOFT TISSUES: The soft tissues are normal. VASCULATURE: Unremarkable. No abdominal aortic aneurysm. LYMPH NODES: Unremarkable. No enlarged lymph nodes. IMPRESSION: 1. Left double-J ureteral stent with resolution of the previously demonstrated left hydr oureteronephrosis. 2. Bilateral nephrolithiasis. Electronically signed by: Alysha Bustamante MD 05/25/2019 2:44 AM OUTREACH PROFESSIONAL Due to temporary technical issues with the PACS/Fluency reporting system, reports are being signed by the in house radiologist as a courtesy to ensure prompt reporting. The interpreting radiologist is f tracyly responsible for the content of the report.
== END 2019-05-25 03:59 | disposition home or self-care (01) ==
LOC: ER 02:06
DX: N20.2 Calculus of kidney with calculus of ureter (principal); I10 Essential (primary) hypertension; F17.210 Nicotine dependence, cigarettes, uncomplicated; Z87.442 Personal history of urinary calculi
CPT/HCPCS: 36415; 74176; 76377; 80048; 80076; 83690; 85025; 96361; 96374; 96375; 99284; J3010; J7030